=== PATIENT | female | born 1945 | race Caucasian/White ===

== ENCOUNTER 2020-06-30 16:13 | Inpatient (IN) | payer MEDICARE ==
[2020-06-30] MEDS ORDERED: VANCOMYCIN IV PER PHARMACY 1 EACH MISC MISCELLANE PRN (16:21)
[2020-06-30] MEDS ORDERED: HYDROCORTISONE SUCCINATE 100 MG/2 ML VIAL IV STA (16:30)
[2020-06-30] MEDS ORDERED: SODIUM CHLORIDE 0.9% 500 ML 500 ML IV ONE (16:30)
[2020-06-30] MEDS ORDERED: VANCOMYCIN 1,500 MG in SODIUM CHLORIDE 0.9% 250 ML IVPB STA (16:32)
--- NOTE | 2020-06-30 16:42 | ED ---
General Adult HPI - General Chief complaint: Urogenital Stated complaint: UTI,Poss Pneumonia Time Seen by Provider: 06/30/20 16:18 Source: patient, family, EMS, RN notes reviewed, old records reviewed Mode of arrival: EMS Limitations: altered mental status - History of Present Illness Initial comments: 75-year-old female transferred from [facility] for evaluation of UTI, sepsis. Patient initially presented with increased cough, fever, and lethargy. She is bedbound secondary to long-standing MS. Her is her air and water filler and is able to give a complete history. He himself had an upper respiratory infection over the past week. Patient does have suprapubic catheter and was noted to have urinary tract infection. She'll be started on Zosyn and transferred to this institution for UTI with sepsis, there was an infiltrate on x-ray and coronavirus testing was a send out and not available immediately. She is alert feeling much better at the time my evaluation. - Related Data Allergies Allergy/AdvReac Type Severity Reaction Status Date / Time Sulfa (Sulfonamide Allergy Unknown Verified 06/30/20 16:52 Antibiotics) Review of Systems ROS Statement: Those systems with pertinent positive or pertinent negative responses have been documented in the HPI. ROS Other: All systems not noted in ROS Statement are negative. Past Medical History Past Medical History: CVA/TIA, Diabetes Mellitus Additional Past Medical History / Comment(s): MS History of Any Multi-Drug Resistant Organisms: None Reported Past Surgical History: No Surgical Hx Reported Past Psychological History: No Psychological Hx Reported Smoking Status: Never smoker Past Alcohol Use History: None Reported Past Drug Use History: None Reported General Exam Limitations: altered mental status General appearance: alert, in no apparent distress Head exam: Present: atraumatic, normocephalic Eye exam: Present: normal appearance, PERRL ENT exam: Present: mucous membranes moist Neck exam: Present: normal inspection. Absent: tenderness, meningismus Respiratory exam: Present: rhonchi. Absent: respiratory distress Cardiovascular Exam: Present: regular rate, normal rhythm GI/Abdominal exam: Present: soft. Absent: distended, tenderness, guarding, rebound Extremities exam: Absent: pedal edema, joint swelling Neurological exam: Present: alert, oriented X3 Psychiatric exam: Present: normal affect, normal mood Skin exam: Present: warm, dry, intact Course Vital Signs 06/30/20 06/30/20 16:20 16:42 Temperature 98.0 F Pulse Rate 101 H 102 H Respiratory 18 18 Rate Blood Pressure 101/60 105/49 O2 Sat by Pulse 96 98 Oximetry EKG Findings - EKG Comments: EKG Findings:: EKG: Sinus rhythm left axis, left bundle branch block, rate of 99, OH interval 160, QRS duration 156, QTC 546, no ST segment elevation Medical Decision Making - Medical Decision Making 75 female transferred from [facility] with UTI, sepsis, infiltrate and x-ray. There was a high suspicion for coronavirus, this test was performed, and she is positive. She did have signs of UTI and there is concern that this may be a concurrent infection. Laboratory studies have been repeated including blood culture, urine culture, CBC, CMP these results are pending. Blood pressure is stable upon arrival. She is continued on normal saline, continued on IV antibiotics. Case has been discussed with Dr. Lainez who will admit. - Lab Data Result diagrams: 06/30/20 16:51 06/30/20 16:51 Lab Results 06/30/20 06/30/20 06/30/20 Range/Units 16:51 16:51 16:51 WBC 11.9 H (3.8-10.6) k/uL RBC 4.35 (3.80-5.40) m/uL Hgb 13.2 (11.4-16.0) gm/dL Hct 40.3 (34.0-46.0) % MCV 92.7 (80.0-100.0) fL MCH 30.3 (25.0-35.0) pg MCHC 32.7 (31.0-37.0) g/dL RDW 14.0 (11.5-15.5) % Plt Count 182 (150-450) k/uL MPV 8.1 Neutrophils % 81 % Lymphocytes % 12 % Monocytes % 6 % Eosinophils % 0 % Basophils % 0 % Neutrophils # 9.6 H (1.3-7.7) k/uL Lymphocytes # 1.4 (1.0-4.8) k/uL Monocytes # 0.7 (0-1.0) k/uL Eosinophils # 0.0 (0-0.7) k/uL Basophils # 0.0 (0-0.2) k/uL Sodium (137-145) mmol/L Potassium (3.5-5.1) mmol/L Chloride (98-107) mmol/L Carbon Dioxide (22-30) mmol/L Anion Gap mmol/L BUN (7-17) mg/dL Creatinine (0.52-1.04) mg/dL Est GFR (CKD-EPI)AfAm (>60 ml/min/1.73 sqM) Est GFR (CKD-EPI)NonAf (>60 ml/min/1.73 sqM) Glucose (74-99) mg/dL Plasma Lactic Acid [place] (0.7-2.0) mmol/L Calcium (8.4-10.2) mg/dL Total Bilirubin (0.2-1.3) mg/dL AST (14-36) U/L ALT (4-34) U/L Alkaline Phosphatase (38-126) U/L Total Protein (6.3-8.2) g/dL Albumin (3.5-5.0) g/dL Urine Color Yellow Urine Appearance Turbid H (Clear) Urine pH 5.0 (5.0-8.0) Ur Specific [place] 1.028 (1.001-1.035) Urine Protein 1+ H (Negative) Urine Glucose (UA) Negative (Negative) Urine Ketones Trace H (Negative) Urine Blood Small H (Negative) Urine Nitrite Positive H (Negative) Urine Bilirubin Negative (Negative) Urine Urobilinogen <2.0 (<2.0) mg/dL Ur Leukocyte Esterase Large H (Negative) Urine RBC 14 H (0-5) /hpf Urine WBC 111 H (0-5) /hpf Urine WBC Clumps Many H (None) /hpf Ur Squamous Epith Cells 8 H (0-4) /hpf Amorphous Sediment Many H (None) /hpf Urine Bacteria Many H (None) /hpf Hyaline Casts 7 H (0-2) /lpf Urine Mucus Many H (None) /hpf Coronavirus (PCR) Detected A (Not Detectd) 06/30/20 06/30/20 Range/Units 16:51 16:51 WBC (3.8-10.6) k/uL RBC (3.80-5.40) m/uL Hgb (11.4-16.0) gm/dL Hct (34.0-46.0) % MCV (80.0-100.0) fL MCH (25.0-35.0) pg MCHC (31.0-37.0) g/dL RDW (11.5-15.5) % Plt Count (150-450) k/uL MPV Neutrophils % % Lymphocytes % % Monocytes % % Eosinophils % % Basophils % % Neutrophils # (1.3-7.7) k/uL Lymphocytes # (1.0-4.8) k/uL Monocytes # (0-1.0) k/uL Eosinophils # (0-0.7) k/uL Basophils # (0-0.2) k/uL Sodium 137 (137-145) mmol/L Potassium 3.5 (3.5-5.1) mmol/L Chloride 110 H (98-107) mmol/L Carbon Dioxide 23 (22-30) mmol/L Anion Gap 4 mmol/L BUN 26 H (7-17) mg/dL Creatinine 0.56 (0.52-1.04) mg/dL Est GFR (CKD-EPI)AfAm >90 (>60 ml/min/1.73 sqM) Est GFR (CKD-EPI)NonAf >90 (>60 ml/min/1.73 sqM) Glucose 177 H (74-99) mg/dL Plasma Lactic Acid [place] 1.7 (0.7-2.0) mmol/L Calcium 7.8 L (8.4-10.2) mg/dL Total Bilirubin 0.5 (0.2-1.3) mg/dL AST 27 (14-36) U/L ALT 20 (4-34) U/L Alkaline Phosphatase 97 (38-126) U/L Total Protein 4.9 L (6.3-8.2) g/dL Albumin 2.5 L (3.5-5.0) g/dL Urine Color Urine Appearance (Clear) Urine pH (5.0-8.0) Ur Specific [place] (1.001-1.035) Urine Protein (Negative) Urine Glucose (UA) (Negative) Urine Ketones (Negative) Urine Blood (Negative) Urine Nitrite (Negative) Urine Bilirubin (Negative) Urine Urobilinogen (<2.0) mg/dL Ur Leukocyte Esterase (Negative) Urine RBC (0-5) /hpf Urine WBC (0-5) /hpf Urine WBC Clumps (None) /hpf Ur Squamous Epith Cells (0-4) /hpf Amorphous Sediment (None) /hpf Urine Bacteria (None) /hpf Hyaline Casts (0-2) /lpf Urine Mucus (None) /hpf Coronavirus (PCR) (Not Detectd) Disposition Clinical Impression: Urinary tract infection, Sepsis, COVID-19 Disposition: ADMITTED IP TO THIS [facility] Condition: Stable Is patient prescribed a controlled substance at d/c from ED?: No Referrals: Bala Campoverde MD [REFERRING] - 1-2 days Decision to Admit Reason: Admit from EC Decision Date: 06/30/20 Decision Time: 17:38
[2020-06-30] MEDS: SODIUM CHLORIDE 0.9% 1,000 ML IV SCH (16:53)
[2020-06-30 17:13] LABS: Amorphous Sediment,Urine Many /hpf; Appearance,Urine Turbid (Clear); Bacteria,Urine Many /hpf; Bilirubin,Urine Negative (Negative); Blood,Urine Small (Negative); Color,Urine Yellow; Glucose,Urine (UA) Negative (Negative); Hyaline Casts,Urine 7 /lpf (0-2); Ketones,Urine Trace (Negative); Leukocyte Esterase,Urine Large (Negative); Mucus,Urine Many /hpf; Nitrite,Urine Positive (Negative); Protein,Urine 1+ (Negative); RBC,Urine 14 /hpf (0-5); Specific Gravity,Urine 1.028 (1.001-1.035); Squamous Epithelial Cell,Urine 8 /hpf (0-4); Urobilinogen,Urine <2.0 mg/dL (<2.0); WBC,Urine 111 /hpf (0-5)
[2020-06-30 17:22] LABS: ALT 20 U/L (4-34); AST 27 U/L (14-36); African American GFR (CKD) >90 (>60 ml/min/1.73 sqM); Albumin 2.5 g/dL (3.5-5.0); Alkaline Phosphatase 97 U/L (38-126); Anion Gap 4 mmol/L; Blood Urea Nitrogen 26 mg/dL (7-17); Calcium 7.8 mg/dL (8.4-10.2); Carbon Dioxide 23 mmol/L (22-30); Chloride 110 mmol/L (98-107); Glucose 177 mg/dL (74-99); Non-African American GFR(CKD) >90 (>60 ml/min/1.73 sqM); Potassium 3.5 mmol/L (3.5-5.1); Sodium 137 mmol/L (137-145); Total Bilirubin 0.5 mg/dL (0.2-1.3); Total Protein 4.9 g/dL (6.3-8.2)
[2020-06-30] MEDS ORDERED: NALOXONE 0.4 MG/ML 1 ML VIAL IV PRN (17:31)
[2020-06-30 17:32] LABS: Basophils % (A) 0 %; Eosinophils % (A) 0 %; HCT 40.3 % (34.0-46.0); HGB 13.2 gm/dL (11.4-16.0); Lymphocytes # (A) 1.4 k/uL (1.0-4.8); Lymphocytes % (A) 12 %; MCH 30.3 pg (25.0-35.0); MCHC 32.7 g/dL (31.0-37.0); MCV 92.7 fL (80.0-100.0); Mean Platelet Volume 8.1; Monocytes # (A) 0.7 k/uL (0-1.0); Monocytes % (A) 6 %; Neutrophils # (A) 9.6 k/uL (1.3-7.7); Neutrophils % (A) 81 %; Platelet Count 182 k/uL (150-450); RBC 4.35 m/uL (3.80-5.40); WBC 11.9 k/uL (3.8-10.6)
--- NOTE | 2020-06-30 23:29 | P.HPIM ---
History of Present Illness H&P Date: 06/30/20 Chief Complaint: cough 75 year old female bedbound due to MS with contractures patient was transferred to our facility from [facility] due to suspicion of UTI with sepsis for further treatment xrays were done over there showing pulmonary infilterates, COVID testing was a sent out. patient unable to provide any meaningful history due to speech difficulties that are chronic, she only says yes and pardon me. which is her baseline per the who is the human services care specialist to his bedbound . he reports few day history of coughing , fever and progressive worsening in mental status and lethargy , poor PO intake and looking overall sick. he suspected another episode of UTI , denies any hematuria for which he took her to the hospital for evaluation she has chronic suprapubic catheter, which is leaking urine at this time . urinalysis was positive and turbid, pendig cultures patient tested positive to covid , patient admits to few week history of URI symptoms himself , however he is getting better , and he has not tested for COVID . blood work showed elevated WBC, BP initially was low, improved with IVF hydration , lactic acid was within normal limits no other history is obtainable from the patient at this time Review of Systems ROS unobtainable: due to mental status Past Medical History Past Medical History: CVA/TIA, Diabetes Mellitus Additional Past Medical History / Comment(s): MS History of Any Multi-Drug Resistant Organisms: None Reported Past Surgical History: No Surgical Hx Reported Past Psychological History: No Psychological Hx Reported Smoking Status: Never smoker Past Alcohol Use History: None Reported Past Drug Use History: None Reported - Past Family History Mother History Unknown: Yes Father History Unknown: Yes Medications and Allergies Home Medications Medication Instructions Recorded Confirmed Type Baclofen [Lioresal] 20 mg PO Q6H 06/30/20 06/30/20 History Cholecalciferol [Vitamin D3 (25 2,000 unit PO DAILY 06/30/20 06/30/20 History Mcg = 1000 Iu)] Docusate [Colace] 100 mg PO HS 06/30/20 06/30/20 History FLUoxetine HCL 20 mg PO BID 06/30/20 06/30/20 History L.acidoph,Paracasei, B.lactis 1 cap PO DAILY 06/30/20 06/30/20 History [Probiotic] Lisinopril [Zestril] 10 mg PO DAILY 06/30/20 06/30/20 History Metoprolol Succinate [Toprol XL] 25 mg PO HS 06/30/20 06/30/20 History Multivitamins, Thera [Multivitamin 1 tab PO DAILY 06/30/20 06/30/20 History (formulary)] Naproxen [Naprosyn] 500 mg PO DAILY 06/30/20 06/30/20 History Neomycin And Polymyxin B Sulfates 50 ml IRRIGATION DAILY 06/30/20 06/30/20 History [id number] Solution Oxybutynin Chloride [Ditropan XL] 10 mg PO DAILY 06/30/20 06/30/20 History Pravastatin Sodium [Pravachol] 80 mg PO HS 06/30/20 06/30/20 History SILVER sulfADIAZINE Cream 1 applic TOPICAL BID 06/30/20 06/30/20 History [Silvadene 1% Cream] bisacodyL [Dulcolax] 10 mg RECTAL MOWEFR@0700 06/30/20 06/30/20 History polyethylene glycoL 3350 [Miralax] 17 gm PO SUTUTH@1900 06/30/20 06/30/20 History Allergies Allergy/AdvReac Type Severity Reaction Status Date / Time Sulfa (Sulfonamide Allergy Rash/Hives Verified 06/30/20 18:00 Antibiotics) Physical Exam Vitals: Vital Signs Temp Pulse Resp BP Pulse Ox 06/30/20 19:00 97.9 F 87 18 110/52 98 06/30/20 17:50 97.5 F L 92 20 105/47 99 06/30/20 16:42 102 H 18 105/49 98 06/30/20 16:20 98.0 F 101 H 18 101/60 96 Intake and Output 06/30/20 06/30/20 06/30/20 06:59 14:59 22:59 Other: Voiding Method Indwelling Catheter Weight 83.915 kg Constitutional: No acute distress, speech limited by only two words, "yes" and "pardon me" which are randomly used during the interview, patient cooperative with exam Eyes: Anicteric sclerae, moist conjunctiva Pupils equal round reactive to light ENMT: NC/AT Oropharynx clear, no erythema, or exudates Neck: Supple, FROM, no masses, or JVD No carotid bruits No thyromegaly Lungs: good breath sounds bilaterally no wheezing no rales Clear to percussion Normal respiratory effort, no accessory muscle use Cardiovascular: Heart regular in rate and rhythm, No murmurs, gallops, or rubs No peripheral edema Abdominal: Soft, there is leaking of urine from her suprapubic catheter Nontender, no guarding, rebound or rigidity Abdomen moving with respiration Normoactive bowel sounds No hepatomegaly, No splenomegaly No palpable mass Skin: Normal temperature, tone, texture, turgor No induration No subcutaneous nodules No rash, lesions No ulcers Extremities: contractures of all 4 extremities Psychiatric: Alert and orientation could not be assessed due to speech limitations Neuro patient has contractures in all 4 extremities, unable to assess sensation unable to assess cranial nerves, patient could not follow my commands properly , and could not give coherent feedback , due to speech limitations Lymphatics: no palpable cervical or supraclavicular , or inguinal lymph nodes Results CBC & Chem 7: 06/30/20 16:51 06/30/20 16:51 Labs: Abnormal Lab Results - Last 24 Hours (Table) 06/30/20 06/30/20 06/30/20 Range/Units 16:51 16:51 16:51 WBC 11.9 H (3.8-10.6) k/uL Neutrophils # 9.6 H (1.3-7.7) k/uL Chloride (98-107) mmol/L BUN (7-17) mg/dL Glucose (74-99) mg/dL Calcium (8.4-10.2) mg/dL Total Protein (6.3-8.2) g/dL Albumin (3.5-5.0) g/dL Urine Appearance Turbid H (Clear) Urine Protein 1+ H (Negative) Urine Ketones Trace H (Negative) Urine Blood Small H (Negative) Urine Nitrite Positive H (Negative) Ur Leukocyte Esterase Large H (Negative) Urine RBC 14 H (0-5) /hpf Urine WBC 111 H (0-5) /hpf Urine WBC Clumps Many H (None) /hpf Ur Squamous Epith Cells 8 H (0-4) /hpf Amorphous Sediment Many H (None) /hpf Urine Bacteria Many H (None) /hpf Hyaline Casts 7 H (0-2) /lpf Urine Mucus Many H (None) /hpf Coronavirus (PCR) Detected A (Not Detectd) 06/30/20 Range/Units 16:51 WBC (3.8-10.6) k/uL Neutrophils # (1.3-7.7) k/uL Chloride 110 H (98-107) mmol/L BUN 26 H (7-17) mg/dL Glucose 177 H (74-99) mg/dL Calcium 7.8 L (8.4-10.2) mg/dL Total Protein 4.9 L (6.3-8.2) g/dL Albumin 2.5 L (3.5-5.0) g/dL Urine Appearance (Clear) Urine Protein (Negative) Urine Ketones (Negative) Urine Blood (Negative) Urine Nitrite (Negative) Ur Leukocyte Esterase (Negative) Urine RBC (0-5) /hpf Urine WBC (0-5) /hpf Urine WBC Clumps (None) /hpf Ur Squamous Epith Cells (0-4) /hpf Amorphous Sediment (None) /hpf Urine Bacteria (None) /hpf Hyaline Casts (0-2) /lpf Urine Mucus (None) /hpf Coronavirus (PCR) (Not Detectd) Assessment and Plan Assessment: COVID pneumonitis possible complicated UTI with chronic suprapubic catheter monitor oxygen requirement supportive care hypotension , resolved with IVF hydration continue with IVF hydration with normal saline follow up electrolytes follow up cultures empiric antibiotics , zosyn for possible UTI urology consult for suprapubic cath management and care supplemental oxygen if hypoxemia , and consider starting decadron for hypoxemia with covid pulmonary consult for remdesavir chronic conditions MS with contractures, muscle relaxants bedbound DM , insulin sliding scale swallow eval bedside full code heparin sc for DVT ppx PPI for GI ppx anticipated length of stay > 2 days anticipated discharge home with home care 75 min spent in the care of this patient with >50% of the time spent in coordinating care
[2020-07-01] MEDS: FLUoxetine HCL 20 MG CAP PO SCH ×3 (00:21→20:48)
[2020-07-01] MEDS: PRAVASTATIN SODIUM 80 MG TAB PO SCH ×2 (00:21→20:48)
[2020-07-01] MEDS: BACLOFEN 10 MG TAB PO SCH ×5 (00:21→20:48)
[2020-07-01] MEDS: METOPROLOL SUCCINATE (ER) 25 MG TAB.ER.24H PO SCH ×2 (00:21→20:48)
[2020-07-01] MEDS: DOCUSATE 100 MG CAP PO SCH ×2 (00:21→20:48)
[2020-07-01] MEDS: HEPARIN SODIUM,PORCINE 5,000 UNIT/ML 1 ML VIAL SQ SCH ×4 (00:22→23:31)
[2020-07-01] MEDS: PIPERACILLIN-TAZOBACTAM 3.375 GM in SODIUM CHLORIDE 0.9% 100 ML IVPB SCH ×4 (00:22→23:31)
[2020-07-01] MEDS: SODIUM CHLORIDE 0.9% 1,000 ML IV SCH ×3 (00:22→16:24)
[2020-07-01] MEDS: VANCOMYCIN 1,500 MG in SODIUM CHLORIDE 0.9% 250 ML IVPB SCH ×2 (05:38→16:23)
[2020-07-01 06:31] LABS: Basophils % (A) 0 %; Eosinophils % (A) 0 %; HCT 37.1 % (34.0-46.0); HGB 12.3 gm/dL (11.4-16.0); Lymphocytes # (A) 1.8 k/uL (1.0-4.8); Lymphocytes % (A) 14 %; MCH 31.3 pg (25.0-35.0); MCHC 33.2 g/dL (31.0-37.0); MCV 94.1 fL (80.0-100.0); Mean Platelet Volume 8.4; Monocytes # (A) 0.4 k/uL (0-1.0); Monocytes % (A) 3 %; Neutrophils # (A) 10.2 k/uL (1.3-7.7); Neutrophils % (A) 81 %; Platelet Count 188 k/uL (150-450); RBC 3.94 m/uL (3.80-5.40); RDW 13.7 % (11.5-15.5); WBC 12.6 k/uL (3.8-10.6)
[2020-07-01 06:56] LABS: Glucose,Whole Blood 107 mg/dL (75-99)
--- NOTE | 2020-07-01 08:20 | P.GSCN ---
History of Present Illness Consult date: 07/01/20 History of present illness: 75-year-old female transferred from [facility] with what appeared to be urinary tract infection with sepsis. This woman has long- standing multiple sclerosis and is bedridden and somewhat aphasic as a result. Her urologic care is a chronic suprapubic tube. I do not know who manages this and the patient can not give me any history unfortunately. There is nobody else at the bedside to communicate her previous urologic status. Apparently she became lethargic with an elevated fever. There is question whether she has covid vs a urinary tract infection with sepsis. On chest x-ray she apparently has infiltrates. She has also had a cough. Her rapidcovid test was negative. When has been sent out however. The patient apparently is more responsive since she has had an IV and then in the hospital. Review of Systems ROS unobtainable: due to mental status Past Medical History Past Medical History: CVA/TIA, Diabetes Mellitus Additional Past Medical History / Comment(s): MS History of Any Multi-Drug Resistant Organisms: None Reported Past Surgical History: No Surgical Hx Reported Past Anesthesia/Blood Transfusion Reactions: No Reported Reaction Past Psychological History: No Psychological Hx Reported Smoking Status: Never smoker Past Alcohol Use History: None Reported Past Drug Use History: None Reported - Past Family History Mother History Unknown: Yes Father History Unknown: Yes Medications and Allergies Home Medications Medication Instructions Recorded Confirmed Type Baclofen [Lioresal] 20 mg PO Q6H 06/30/20 06/30/20 History Cholecalciferol [Vitamin D3 (25 2,000 unit PO DAILY 06/30/20 06/30/20 History Mcg = 1000 Iu)] Docusate [Colace] 100 mg PO HS 06/30/20 06/30/20 History FLUoxetine HCL 20 mg PO BID 06/30/20 06/30/20 History L.acidoph,Paracasei, B.lactis 1 cap PO DAILY 06/30/20 06/30/20 History [Probiotic] Lisinopril [Zestril] 10 mg PO DAILY 06/30/20 06/30/20 History Metoprolol Succinate [Toprol XL] 25 mg PO HS 06/30/20 06/30/20 History Multivitamins, Thera [Multivitamin 1 tab PO DAILY 06/30/20 06/30/20 History (formulary)] Naproxen [Naprosyn] 500 mg PO DAILY 06/30/20 06/30/20 History Neomycin And Polymyxin B Sulfates 50 ml IRRIGATION DAILY 06/30/20 06/30/20 History [id number] Solution Oxybutynin Chloride [Ditropan XL] 10 mg PO DAILY 06/30/20 06/30/20 History Pravastatin Sodium [Pravachol] 80 mg PO HS 06/30/20 06/30/20 History SILVER sulfADIAZINE Cream 1 applic TOPICAL BID 06/30/20 06/30/20 History [Silvadene 1% Cream] bisacodyL [Dulcolax] 10 mg RECTAL MOWEFR@0700 06/30/20 06/30/20 History polyethylene glycoL 3350 [Miralax] 17 gm PO SUTUTH@1900 06/30/20 06/30/20 History Allergies Allergy/AdvReac Type Severity Reaction Status Date / Time Sulfa (Sulfonamide Allergy Rash/Hives Verified 06/30/20 18:00 Antibiotics) Surgical - Exam Vital Signs Temp Pulse Resp BP Pulse Ox 98.0 F 101 H 18 101/60 96 06/30/20 16:20 06/30/20 16:20 06/30/20 16:20 06/30/20 16:20 06/30/20 16:20 - General The patient can only say hello. She cannot answer any questions. well developed, well nourished - Eyes PERRL - ENT no hearing loss - Neck trachea midline - Respiratory normal expansion, normal respiratory effort - Cardiovascular Rhythm: regular - Abdomen 26-[place] suprapubic tube with cloudy urine Abdomen: soft, non tender - Musculoskeletal Contracted extremities - Psychiatric Unable to respond to questions due to multiple sclerosis Results - Labs 07/01/20 05:48 06/30/20 16:51 Abnormal Lab Results - Last 24 Hours (Table) 06/30/20 06/30/20 06/30/20 Range/Units 16:51 16:51 16:51 WBC 11.9 H (3.8-10.6) k/uL Neutrophils # 9.6 H (1.3-7.7) k/uL Chloride (98-107) mmol/L BUN (7-17) mg/dL Glucose (74-99) mg/dL POC Glucose (mg/dL) (75-99) mg/dL Calcium (8.4-10.2) mg/dL Total Protein (6.3-8.2) g/dL Albumin (3.5-5.0) g/dL Urine Appearance Turbid H (Clear) Urine Protein 1+ H (Negative) Urine Ketones Trace H (Negative) Urine Blood Small H (Negative) Urine Nitrite Positive H (Negative) Ur Leukocyte Esterase Large H (Negative) Urine RBC 14 H (0-5) /hpf Urine WBC 111 H (0-5) /hpf Urine WBC Clumps Many H (None) /hpf Ur Squamous Epith Cells 8 H (0-4) /hpf Amorphous Sediment Many H (None) /hpf Urine Bacteria Many H (None) /hpf Hyaline Casts 7 H (0-2) /lpf Urine Mucus Many H (None) /hpf Coronavirus (PCR) Detected A (Not Detectd) 06/30/20 07/01/20 07/01/20 Range/Units 16:51 05:48 06:53 WBC 12.6 H (3.8-10.6) k/uL Neutrophils # 10.2 H (1.3-7.7) k/uL Chloride 110 H (98-107) mmol/L BUN 26 H (7-17) mg/dL Glucose 177 H (74-99) mg/dL POC Glucose (mg/dL) 107 H (75-99) mg/dL Calcium 7.8 L (8.4-10.2) mg/dL Total Protein 4.9 L (6.3-8.2) g/dL Albumin 2.5 L (3.5-5.0) g/dL Urine Appearance (Clear) Urine Protein (Negative) Urine Ketones (Negative) Urine Blood (Negative) Urine Nitrite (Negative) Ur Leukocyte Esterase (Negative) Urine RBC (0-5) /hpf Urine WBC (0-5) /hpf Urine WBC Clumps (None) /hpf Ur Squamous Epith Cells (0-4) /hpf Amorphous Sediment (None) /hpf Urine Bacteria (None) /hpf Hyaline Casts (0-2) /lpf Urine Mucus (None) /hpf Coronavirus (PCR) (Not Detectd) Microbiology - Last 24 Hours (Table) 06/30/20 16:51 Urine Culture - Preliminary Urine,Voided Diabetes panel 06/30/20 Range/Units 16:51 Sodium 137 (137-145) mmol/L Potassium 3.5 (3.5-5.1) mmol/L Chloride 110 H (98-107) mmol/L Carbon Dioxide 23 (22-30) mmol/L BUN 26 H (7-17) mg/dL Creatinine 0.56 (0.52-1.04) mg/dL Glucose 177 H (74-99) mg/dL Calcium 7.8 L (8.4-10.2) mg/dL AST 27 (14-36) U/L ALT 20 (4-34) U/L Alkaline Phosphatase 97 (38-126) U/L Total Protein 4.9 L (6.3-8.2) g/dL Albumin 2.5 L (3.5-5.0) g/dL Calcium panel 06/30/20 Range/Units 16:51 Calcium 7.8 L (8.4-10.2) mg/dL Albumin 2.5 L (3.5-5.0) g/dL Pituitary panel 06/30/20 Range/Units 16:51 Sodium 137 (137-145) mmol/L Potassium 3.5 (3.5-5.1) mmol/L Chloride 110 H (98-107) mmol/L Carbon Dioxide 23 (22-30) mmol/L BUN 26 H (7-17) mg/dL Creatinine 0.56 (0.52-1.04) mg/dL Glucose 177 H (74-99) mg/dL Calcium 7.8 L (8.4-10.2) mg/dL Adrenal panel 06/30/20 Range/Units 16:51 Sodium 137 (137-145) mmol/L Potassium 3.5 (3.5-5.1) mmol/L Chloride 110 H (98-107) mmol/L Carbon Dioxide 23 (22-30) mmol/L BUN 26 H (7-17) mg/dL Creatinine 0.56 (0.52-1.04) mg/dL Glucose 177 H (74-99) mg/dL Calcium 7.8 L (8.4-10.2) mg/dL Total Bilirubin 0.5 (0.2-1.3) mg/dL AST 27 (14-36) U/L ALT 20 (4-34) U/L Alkaline Phosphatase 97 (38-126) U/L Total Protein 4.9 L (6.3-8.2) g/dL Albumin 2.5 L (3.5-5.0) g/dL Assessment and Plan Assessment: Impression: Probable urinary tract infection with sepsis. Chronic neurogenic bladder secondary to multiple sclerosis with indwelling suprapubic tube, 26- [place]. Possible covid pneumonia. Advanced multiple sclerosis. Diabetes. Recommendations: I will obtain a KUB to see if there are any stones however given the level of white count at 12,000 and a normal creatinine (0.56) and it is unlikely that there is any obstruction.
[2020-07-01] MEDS: bisacodyL 10 MG SUPP RECTAL SCH (08:45)
[2020-07-01] MEDS: lisinopriL 10 MG TAB PO SCH (08:51)
[2020-07-01] MEDS: INSULIN ASPART (NovoLOG) 100 UNIT/ML VIAL SQ SCH ×2 (08:52→13:29)
[2020-07-01] MEDS: OXYBUTYNIN 10 MG TAB.ER.24 PO SCH (08:52)
[2020-07-01 09:28] LABS: African American GFR (CKD) 104.1 (60.0-200.0); Albumin 2.9 g/dL (3.80-4.90); Albumin/Globulin Ratio 1.81 (1.60-3.17); Anion Gap 6.8 mmol/L (4.00-12.00); BUN/Creat Ratio 46.67 Ratio (12.00-20.00); Calcium 7.9 mg/dL (8.7-10.3); Carbon Dioxide 24.2 mmol/L (21.6-31.8); Globulin 1.6 g/dL (1.6-3.3); Non-African American GFR(CKD) 89.8 (60.0-200.0); Potassium 3.5 mmol/L (3.5-5.5); Total Bilirubin 0.3 mg/dL (0.3-1.2); Total Protein 4.5 g/dL (6.2-8.2)
--- NOTE | 2020-07-01 14:10 | XR ---
EXAMINATION TYPE: XR chest 1V portable DATE OF EXAM: 07/01/2020 HISTORY: Shortness of breath. COMPARISON: None. TECHNIQUE: Single view of the chest is submitted. FINDINGS: Demonstrated are scattered senescent parenchymal change. Patchy left lower lobe infiltrate. The heart is stable. Hilar and mediastinal structures are within normal limits. Degenerative changes are seen of the dorsal spine. IMPRESSION: 1. Left lower lobe infiltrate. Correlate for Covid 19 pneumonia
[2020-07-01 14:35] VITALS: BMI 29.0
[2020-07-01] MEDS: dexAMETHasone 2 MG TAB PO SCH (16:16)
--- NOTE | 2020-07-01 16:58 | P.PN ---
Subjective Progress Note Date: 07/01/20 Patient is awake and alert today. She does not have any complaints. Objective - Vital Signs Vital signs: Vital Signs Temp 97.9 F 07/01/20 14:00 Pulse 85 07/01/20 14:00 Resp 18 07/01/20 14:00 BP 132/76 07/01/20 14:00 Pulse Ox 98 07/01/20 14:00 Intake & Output 06/30/20 07/01/20 07/01/20 18:59 06:59 18:59 Intake Total 700 Output Total 600 Balance 100 Weight 83.915 kg 83.915 kg 83.915 kg Intake: Amount of Fluid Infused ( 700 ml) Output: Urine 600 Other: Voiding Method Indwelling Catheter Indwelling Catheter # Voids 1 - Exam General: The patient is awake and alert, in no distress. She is contracted. Eye: there is normal conjunctiva bilaterally. Neck: The neck is supple, there is no JVD. Cardiovascular: Normal S1-S2, no S3-S4, no murmurs. Respiratory: Lungs clear to auscultation bilaterally Gastrointestinal: Abdomen is soft, nontender Musculoskeletal: There is no pedal edema. Skin: Skin is warm and dry - Labs CBC & Chem 7: 07/01/20 05:48 07/01/20 05:48 Labs: Abnormal Lab Results - Last 24 Hours (Table) 06/30/20 06/30/20 06/30/20 Range/Units 16:51 16:51 16:51 WBC 11.9 H (3.8-10.6) k/uL Neutrophils # 9.6 H (1.3-7.7) k/uL Chloride (98-107) mmol/L BUN (7-17) mg/dL BUN/Creatinine Ratio (12.00-20.00) Ratio Glucose (74-99) mg/dL POC Glucose (mg/dL) (75-99) mg/dL Calcium (8.4-10.2) mg/dL Total Protein (6.3-8.2) g/dL Albumin (3.5-5.0) g/dL Urine Appearance Turbid H (Clear) Urine Protein 1+ H (Negative) Urine Ketones Trace H (Negative) Urine Blood Small H (Negative) Urine Nitrite Positive H (Negative) Ur Leukocyte Esterase Large H (Negative) Urine RBC 14 H (0-5) /hpf Urine WBC 111 H (0-5) /hpf Urine WBC Clumps Many H (None) /hpf Ur Squamous Epith Cells 8 H (0-4) /hpf Amorphous Sediment Many H (None) /hpf Urine Bacteria Many H (None) /hpf Hyaline Casts 7 H (0-2) /lpf Urine Mucus Many H (None) /hpf Coronavirus (PCR) Detected A (Not Detectd) 06/30/20 07/01/20 07/01/20 Range/Units 16:51 05:48 05:48 WBC 12.6 H (3.8-10.6) k/uL Neutrophils # 10.2 H (1.3-7.7) k/uL Chloride 110 H 112 H (98-107) mmol/L BUN 26 H 28.0 H (7-17) mg/dL BUN/Creatinine Ratio 46.67 H (12.00-20.00) Ratio Glucose 177 H 125 H (74-99) mg/dL POC Glucose (mg/dL) (75-99) mg/dL Calcium 7.8 L 7.9 L (8.4-10.2) mg/dL Total Protein 4.9 L 4.5 L (6.3-8.2) g/dL Albumin 2.5 L 2.90 L (3.5-5.0) g/dL Urine Appearance (Clear) Urine Protein (Negative) Urine Ketones (Negative) Urine Blood (Negative) Urine Nitrite (Negative) Ur Leukocyte Esterase (Negative) Urine RBC (0-5) /hpf Urine WBC (0-5) /hpf Urine WBC Clumps (None) /hpf Ur Squamous Epith Cells (0-4) /hpf Amorphous Sediment (None) /hpf Urine Bacteria (None) /hpf Hyaline Casts (0-2) /lpf Urine Mucus (None) /hpf Coronavirus (PCR) (Not Detectd) 07/01/20 Range/Units 06:53 WBC (3.8-10.6) k/uL Neutrophils # (1.3-7.7) k/uL Chloride (98-107) mmol/L BUN (7-17) mg/dL BUN/Creatinine Ratio (12.00-20.00) Ratio Glucose (74-99) mg/dL POC Glucose (mg/dL) 107 H (75-99) mg/dL Calcium (8.4-10.2) mg/dL Total Protein (6.3-8.2) g/dL Albumin (3.5-5.0) g/dL Urine Appearance (Clear) Urine Protein (Negative) Urine Ketones (Negative) Urine Blood (Negative) Urine Nitrite (Negative) Ur Leukocyte Esterase (Negative) Urine RBC (0-5) /hpf Urine WBC (0-5) /hpf Urine WBC Clumps (None) /hpf Ur Squamous Epith Cells (0-4) /hpf Amorphous Sediment (None) /hpf Urine Bacteria (None) /hpf Hyaline Casts (0-2) /lpf Urine Mucus (None) /hpf Coronavirus (PCR) (Not Detectd) Microbiology - Last 24 Hours (Table) 06/30/20 16:50 Blood Culture Gram Stain - Preliminary Blood 06/30/20 16:51 Blood Culture - Final Blood 06/30/20 16:51 Urine Culture - Preliminary Urine,Voided Assessment and Plan Assessment: This is a 75-year-old female with complex past medical history significant for underlying MS who is chronically bedbound that presented to the emergency room as a transfer from [place] for further evaluation of underlying UTI. Patient was evaluated in the ER and currently admitted to the hospital for further management of her medical problems noted below. 1. Catheter associated UTI: Currently on broad-spectrum antibiotic awaiting urine culture 2. Gram-positive bacteremia: Continue IV vancomycin awaiting final identification and susceptibility. Repeat blood culture ordered today. 3. Sepsis without septic shock, improved with aggressive IV fluid hydration and antibiotic 4. Neurogenic bladder with chronic suprapubic catheter, seen and evaluated by urology, appreciate recommendations. 5. COVID-19 pneumonia, and started on Decadron day #1. I added zinc, vitamin C, vitamin D, and melatonin to her regimen 6. Toxic/metabolic encephalopathy, improved. Mentation seems to be back to normal baseline.
--- NOTE | 2020-07-01 17:55 | P.CNPUL ---
History of Present Illness Consult date: 07/01/20 Requesting physician: Isatu Lainez Reason for consult: pneumonia Chief complaint: Cough and headaches History of present illness: This is a 75-year-old female with history of MS which was diagnosed over 45 years ago, patient has been bedbound for the last 15 years. Her MS has been progressive and debilitating over the years. Patient was transferred from [facility] and she was seen for urinary tract infection and possible sepsis. Chest x-ray while inpatient showed left lower lobe infiltrate, patient had a covid PCR test, and it was reported as positive. Patient is not a great historian, however I was able to discuss some of this history with the over the phone, and the patient had mostly symptoms of headaches, and symptoms of cough. No shortness of breath, no GI symptoms, patient has chronic loss of sensation of smell and taste according to her and according to the . Apparently had URI symptoms about a few weeks ago, and that may have been covid related, however he was never tested because his symptoms were not very severe. On admission the patient was noted to have relatively normal CBC with slight leukocytosis, normal electrolytes profile, and she clearly had abnormal urinalysis with positive leukocyte esterase, and there was evidence of bacteriuria and pyuria. Patient was placed empirically on vancomycin and Zosyn, and she is now on Decadron at 6 mg by mouth daily. Patient is also on vitamin D, and zinc. As well as vitamin C. She is also on heparin 5000 units subcu every 8 hours Review of Systems Constitutional: Negative. HEENT: Negative. Patient has chronic loss of sensation of taste and smell. Neurologic: Symptoms of MS, and symptoms of headaches Pulmonary: Minimal cough, dry nonproductive. No shortness of breath. GI: Negative Genitourinary: Negative. Musculoskeletal: History of muscle atrophy and weakness/chronic. Psychiatric: Negative. Skin: Negative. Hematologic: Negative. Lymphatics: Negative. Cardiac: Negative. Past Medical History Past Medical History: CVA/TIA, Diabetes Mellitus Additional Past Medical History / Comment(s): MS History of Any Multi-Drug Resistant Organisms: None Reported Past Surgical History: No Surgical Hx Reported Past Anesthesia/Blood Transfusion Reactions: No Reported Reaction Past Psychological History: No Psychological Hx Reported Smoking Status: Never smoker Past Alcohol Use History: None Reported Past Drug Use History: None Reported - Past Family History Mother History Unknown: Yes Father History Unknown: Yes Medications and Allergies Home Medications Medication Instructions Recorded Confirmed Type Baclofen [Lioresal] 20 mg PO Q6H 06/30/20 06/30/20 History Cholecalciferol [Vitamin D3 (25 2,000 unit PO DAILY 06/30/20 06/30/20 History Mcg = 1000 Iu)] Docusate [Colace] 100 mg PO HS 06/30/20 06/30/20 History FLUoxetine HCL 20 mg PO BID 06/30/20 06/30/20 History L.acidoph,Paracasei, B.lactis 1 cap PO DAILY 06/30/20 06/30/20 History [Probiotic] Lisinopril [Zestril] 10 mg PO DAILY 06/30/20 06/30/20 History Metoprolol Succinate [Toprol XL] 25 mg PO HS 06/30/20 06/30/20 History Multivitamins, Thera [Multivitamin 1 tab PO DAILY 06/30/20 06/30/20 History (formulary)] Naproxen [Naprosyn] 500 mg PO DAILY 06/30/20 06/30/20 History Neomycin And Polymyxin B Sulfates 50 ml IRRIGATION DAILY 06/30/20 06/30/20 History [id number] Solution Oxybutynin Chloride [Ditropan XL] 10 mg PO DAILY 06/30/20 06/30/20 History Pravastatin Sodium [Pravachol] 80 mg PO HS 06/30/20 06/30/20 History SILVER sulfADIAZINE Cream 1 applic TOPICAL BID 06/30/20 06/30/20 History [Silvadene 1% Cream] bisacodyL [Dulcolax] 10 mg RECTAL MOWEFR@0700 06/30/20 06/30/20 History polyethylene glycoL 3350 [Miralax] 17 gm PO SUTUTH@1900 06/30/20 06/30/20 History Allergies Allergy/AdvReac Type Severity Reaction Status Date / Time Sulfa (Sulfonamide Allergy Rash/Hives Verified 06/30/20 18:00 Antibiotics) Physical Exam Vitals: Vital Signs Temp Pulse Pulse Resp BP BP Pulse Ox 07/01/20 14:00 97.9 F 85 18 132/76 98 07/01/20 08:00 98.2 F 81 18 103/71 99 07/01/20 05:00 98.3 F 84 19 89/57 97 07/01/20 01:30 97.7 F 95 19 98/60 95 07/01/20 00:58 19 07/01/20 00:23 97 106/67 06/30/20 21:49 98.6 F 90 19 98/64 96 06/30/20 21:41 97.8 F 89 18 100/46 97 06/30/20 21:00 91 18 103/54 97 06/30/20 20:00 92 18 111/52 98 06/30/20 19:00 97.9 F 87 18 110/52 98 06/30/20 17:50 97.5 F L 92 20 105/47 99 Intake and Output 07/01/20 07/01/20 07/01/20 06:59 14:59 22:59 Output Total 600 Balance -600 Output: Urine 600 Other: Voiding Method Indwelling Catheter # Voids 1 # Bowel Movements 1 Weight 83.915 kg Physical Exam: Revealed 75-year-old female very pleasant, in no form of distress. Head: Atraumatic, normocephalic. HEENT:[Neck is supple.] [No neck masses.] [No thyromegaly.] [No JVD.] Chest: [Symmetrical chest expansion, minimal crackles at the bases especially at the left base.] Cardiac Exam: [Normal S1 and S2, no S3 gallop, no murmur.] Abdomen: [Soft, nontender, no megaly, no rebound, no guarding, normal bowel sounds.] Extremities: [No clubbing, no edema, no cyanosis.] Neurological Exam: Patient is noted to have contractures of upper extremities, mostly the left upper extremity more so than the right. There is also evidence of muscle atrophy in lower extremities. Alert and oriented 3 Psychiatric: Normal mood, affect and normal mental status exam. Skin: No rashes. Results - Laboratory Findings CBC and BMP: 07/01/20 05:48 07/01/20 05:48 Abnormal lab findings: Abnormal Labs 06/30/20 06/30/20 06/30/20 16:51 16:51 16:51 WBC 11.9 H Neutrophils # 9.6 H Chloride BUN BUN/Creatinine Ratio Glucose POC Glucose (mg/dL) Calcium Total Protein Albumin Urine Appearance Turbid H Urine Protein 1+ H Urine Ketones Trace H Urine Blood Small H Urine Nitrite Positive H Ur Leukocyte Esterase Large H Urine RBC 14 H Urine WBC 111 H Urine WBC Clumps Many H Ur Squamous Epith Cells 8 H Amorphous Sediment Many H Urine Bacteria Many H Hyaline Casts 7 H Urine Mucus Many H Coronavirus (PCR) Detected A 06/30/20 07/01/20 07/01/20 16:51 05:48 05:48 WBC 12.6 H Neutrophils # 10.2 H Chloride 110 H 112 H BUN 26 H 28.0 H BUN/Creatinine Ratio 46.67 H Glucose 177 H 125 H POC Glucose (mg/dL) Calcium 7.8 L 7.9 L Total Protein 4.9 L 4.5 L Albumin 2.5 L 2.90 L Urine Appearance Urine Protein Urine Ketones Urine Blood Urine Nitrite Ur Leukocyte Esterase Urine RBC Urine WBC Urine WBC Clumps Ur Squamous Epith Cells Amorphous Sediment Urine Bacteria Hyaline Casts Urine Mucus Coronavirus (PCR) 07/01/20 06:53 WBC Neutrophils # Chloride BUN BUN/Creatinine Ratio Glucose POC Glucose (mg/dL) 107 H Calcium Total Protein Albumin Urine Appearance Urine Protein Urine Ketones Urine Blood Urine Nitrite Ur Leukocyte Esterase Urine RBC Urine WBC Urine WBC Clumps Ur Squamous Epith Cells Amorphous Sediment Urine Bacteria Hyaline Casts Urine Mucus Coronavirus (PCR) - Diagnostic Findings Chest x-ray: image reviewed (As noted in HPI.) Assessment and Plan Assessment: Impression: Acute urinary tract infection, catheter-related, Acute bacteremia, most likely source is urine. Acute sepsis without septic shock. History of neurogenic bladder. Covid 19 pneumonia without major pulmonary symptoms History of MS, patient is chronically bedbound, related to MS. Recommendation: Continue present course of antibiotics. And adjust according to the final cultures. Awaiting blood cultures and urine cultures. Continue the Covid 19 cocktail. Continue GI and DVT prophylaxis. Discussed her condition with the over the phone. We'll continue to follow. Time with Patient: Greater than 30
[2020-07-01] MEDS: MELATONIN 5 MG TABLET PO SCH (20:48)
[2020-07-02] MEDS: VANCOMYCIN 1,500 MG in SODIUM CHLORIDE 0.9% 250 ML IVPB SCH ×2 (05:25→17:03)
[2020-07-02] MEDS: BACLOFEN 10 MG TAB PO SCH ×4 (05:25→22:47)
[2020-07-02 07:12] LABS: Glucose,Whole Blood 181 mg/dL (75-99)
[2020-07-02] MEDS: PIPERACILLIN-TAZOBACTAM 3.375 GM in SODIUM CHLORIDE 0.9% 100 ML IVPB SCH ×2 (08:42→15:00)
[2020-07-02] MEDS: OXYBUTYNIN 10 MG TAB.ER.24 PO SCH (08:43)
[2020-07-02] MEDS: ZINC SULFATE 220 MG CAP PO SCH (08:44)
[2020-07-02] MEDS: CHOLECALCIFEROL 1,000 UNIT TAB PO SCH (08:44)
[2020-07-02] MEDS: FLUoxetine HCL 20 MG CAP PO SCH ×2 (08:44→20:07)
[2020-07-02] MEDS: dexAMETHasone 2 MG TAB PO SCH (08:44)
[2020-07-02] MEDS: lisinopriL 10 MG TAB PO SCH (08:45)
[2020-07-02] MEDS: ASCORBIC ACID 500 MG TAB PO SCH (08:45)
[2020-07-02] MEDS: HEPARIN SODIUM,PORCINE 5,000 UNIT/ML 1 ML VIAL SQ SCH (08:45)
[2020-07-02] MEDS: ONDANSETRON 4 MG/2 ML VIAL IVP PRN (10:30)
[2020-07-02 11:55] LABS: Glucose,Whole Blood 148 mg/dL (75-99)
--- NOTE | 2020-07-02 13:14 | P.PN ---
Subjective Progress Note Date: 07/02/20 Principal diagnosis: Acute urinary tract infection, acute bacteremia, COVID 19 pneumonia This is a 75-year-old female with history of MS which was diagnosed over 45 years ago, patient has been bedbound for the last 15 years. Her MS has been progressive and debilitating over the years. Patient was transferred from [facility] and she was seen for urinary tract infection and possible sepsis. Chest x-ray while inpatient showed left lower lobe infiltrate, patient had a covid PCR test, and it was reported as positive. Patient is not a great historian, however I was able to discuss some of this history with the over the phone, and the patient had mostly symptoms of headaches, and symptoms of cough. No shortness of breath, no GI symptoms, patient has chronic loss of sensation of smell and taste according to her and according to the . Apparently had URI symptoms about a few weeks ago, and that may have been covid related, however he was never tested because his symptoms were not very severe. On admission the patient was noted to have relatively normal CBC with slight leukocytosis, normal electrolytes profile, and she clearl y had abnormal urinalysis with positive leukocyte esterase, and there was evidence of bacteriuria and pyuria. Patient was placed empirically on vancomycin and Zosyn, and she is now on Decadron at 6 mg by mouth daily. Patient is also on vitamin D, and zinc. As well as vitamin C. She is also on heparin 5000 units subcu every 8 hours On 07/02/2020 patient seen in follow-up on the surgical floor. She is resting comfortably in bed, she denies any worsening shortness of breath, her breathing seems to be comfortable, she is currently on 2 L of oxygen her pulse ox is 98%, she was not Remdesivir candidate related to mild nature of her pulmonary symptoms, and it any major pulmonary symptoms, she denies any cough, no chest discomfort, she is on minimal amount of supplemental oxygen, she remains on oral Decadron, and supplements in the form of vitamin C, vitamin D, zinc supplement, and she is on Zosyn and vancomycin, for antibiotic coverage for gram-positive cocci in clusters. Final culture is in progress. T-max in the last 24 hours was 99.6F. Objective - Vital Signs Vital signs: Vital Signs Temp 97.8 F 12/15/20 08:00 Pulse 61 07/02/20 08:00 Resp 18 07/02/20 08:00 BP 100/65 07/02/20 08:00 Pulse Ox 98 07/02/20 08:00 Intake & Output 07/01/20 07/02/20 07/02/20 18:59 06:59 18:59 Intake Total 260 Output Total 1500 Balance -1240 Weight 83.915 kg Intake: Intake, IV Titration 260 Amount Piperacillin-Tazobactam 3 100 .375 gm In Sodium Chloride 0.9% 100 ml @ 25 mls/hr IVPB Q8HR [facility] Rx# :[id number] Sodium Chloride 0.9% 1, 160 000 ml @ 130 mls/hr IV . Q7H42M [facility] Rx#:[id number] Output: Urine 1500 Other: Voiding Method Indwelling Catheter Indwelling Catheter Indwelling Catheter # Bowel Movements 1 1 - Exam GENERAL EXAM: Alert, very pleasant, 75-year-old white female, currently on 2 L oxygen with a pulse ox of 90%, resting comfortably in bed, comfortable in no apparent distress. HEAD: Normocephalic/atraumatic. EYES: Normal reaction of pupils, equal size. Conjunctiva pink, sclera white. NOSE: Clear with pink turbinates. THROAT: No erythema or exudates. NECK: No masses, no JVD, no thyroid enlargement, no adenopathy. CHEST: No chest wall deformity. Symmetrical expansion. LUNGS: Equal air entry with mild bibasilar crackles, but no wheezes, no rhonchi CVS: Regular rate and rhythm, normal S1 and S2, no gallops, no murmurs, no rubs ABDOMEN: Soft, nontender. No hepatosplenomegaly, normal bowel sounds, no guarding or rigidity. EXTREMITIES: No clubbing, no edema, no cyanosis, 2+ pulses and upper and lower extremities. MUSCULOSKELETAL: Muscle strength and tone normal. SPINE: No scoliosis or deformity SKIN: No rashes CENTRAL NERVOUS SYSTEM: Alert and oriented -3. No focal deficits, tone is normal in all 4 extremities. PSYCHIATRIC: Alert and oriented -3. Appropriate affect. Intact judgment and insight. - Labs CBC & Chem 7: 07/01/20 05:48 07/01/20 05:48 Labs: Abnormal Lab Results - Last 24 Hours (Table) 07/02/20 07/02/20 Range/Units 07:09 11:53 POC Glucose (mg/dL) 181 H 148 H (75-99) mg/dL Microbiology - Last 24 Hours (Table) 06/30/20 16:50 Blood Culture Gram Stain - Preliminary Blood 06/30/20 16:51 Blood Culture - Final Blood Assessment and Plan Plan: Assessment: #1. Acute pulmonary infection, the patient denies any major pulmonary symptoms, she is on minimal amount of supplemental oxygen, her chest x-ray shows left lower lobe infiltrate, findings not typical of COVID 19 pneumonitis, patient is currently covered with the combination of cefepime, doxycycline and vancomycin #2. Acute urinary tract infection #3. Gram-positive bacteremia, blood culture showed gram-positive cocci in clusters, patient is covered with the vancomycin, in addition patient is also on cefepime and doxycycline, final cultures are pending, follow-up cultures have been negative #4. Long-standing history of multiple sclerosis, diagnosed over 45 years ago #5. Medical debility, patient is essentially bedbound for last 15 years requiring total care, patient lives at home with her who is her primary caregiver #6. Previous history of CVA/TIA #7. Diabetes mellitus #8. Chronic neurogenic bladder secondary to multiple sclerosis, with indwelling suprapubic catheter Plan: We'll continue current antibiotics, continue oral Decadron, and vitamins, we'll switch to heparin to subcu tissues Lovenox, we'll obtain a d-dimer, follow-up chest x-ray in the morning, we will obtain a serum inflammatory markers, still no major pulmonary complaints, no significant fever or chills, follow blood cultures are negative thus far, we'll continue to follow I performed a history & physical examination of the patient and discussed their management with my nurse practitioner, Marcela Chaparro. I reviewed the nurse practitioner's note and agree with the documented findings and plan of care. Lung sounds are positive for diminished breath sounds. The findings and the impression was discussed with the patient. I attest to the documentation by the nurse practitioner. Time with Patient: Less than 30
--- NOTE | 2020-07-02 14:28 | P.PN ---
Subjective Progress Note Date: 07/02/20 Patient is awake and alert today. She does not have any complaints. Objective - Vital Signs Vital signs: Vital Signs Temp 97.8 F 07/02/20 08:00 Pulse 61 07/02/20 08:00 Resp 18 07/02/20 08:00 BP 100/65 07/02/20 08:00 Pulse Ox 98 07/02/20 08:00 Intake & Output 07/01/20 07/02/20 07/02/20 18:59 06:59 18:59 Intake Total 260 Output Total 1500 Balance -1240 Weight 83.915 kg Intake: Intake, IV Titration 260 Amount Piperacillin-Tazobactam 3 100 .375 gm In Sodium Chloride 0.9% 100 ml @ 25 mls/hr IVPB Q8HR [facility] Rx# :[id number] Sodium Chloride 0.9% 1, 160 000 ml @ 130 mls/hr IV . Q7H42M [facility] Rx#:[id number] Output: Urine 1500 Other: Voiding Method Indwelling Catheter Indwelling Catheter Indwelling Catheter # Bowel Movements 1 1 - Exam General: The patient is awake and alert, in no distress. She is contracted. Eye: there is normal conjunctiva bilaterally. Neck: The neck is supple, there is no JVD. Cardiovascular: Normal S1-S2, no S3-S4, no murmurs. Respiratory: Lungs clear to auscultation bilaterally Gastrointestinal: Abdomen is soft, nontender Musculoskeletal: There is no pedal edema. Skin: Skin is warm and dry - Labs CBC & Chem 7: 07/01/20 05:48 07/01/20 05:48 Labs: Abnormal Lab Results - Last 24 Hours (Table) 07/02/20 07/02/20 Range/Units 07:09 11:53 POC Glucose (mg/dL) 181 H 148 H (75-99) mg/dL Microbiology - Last 24 Hours (Table) 06/30/20 16:50 Blood Culture Gram Stain - Preliminary Blood 06/30/20 16:51 Blood Culture - Final Blood Assessment and Plan Assessment: This is a 75-year-old female with complex past medical history significant for underlying MS who is chronically bedbound that presented to the emergency room as a transfer from [place] for further evaluation of underlying UTI. Patient was evaluated in the ER and currently admitted to the hospital for further management of her medical problems noted below. 1. Catheter associated UTI: Currently on broad-spectrum antibiotic with IV vancomycin and Zosyn awaiting urine culture 2. Gram-positive bacteremia: Continue IV vancomycin awaiting final identi fication and susceptibility. Repeat blood culture ordered and pending. Infectious disease consulted for further evaluation 3. Sepsis without septic shock, improved with aggressive IV fluid hydration and antibiotic 4. Neurogenic bladder with chronic suprapubic catheter, seen and evaluated by urology, appreciate recommendations. 5. COVID-19 pneumonia, and started on Decadron day #2. I added zinc, vitamin C, vitamin D, and melatonin to her regimen. Pulmonary following closely 6. Toxic/metabolic encephalopathy, improved. Mentation seems to be back to normal baseline.
[2020-07-02] MEDS: ENOXAPARIN 40 MG/0.4 ML SYRINGE SQ SCH (15:00)
--- NOTE | 2020-07-02 15:37 | P.PN ---
Subjective Progress Note Date: 07/02/20 The patient was seen for urinary tract infection with sepsis. She has a suprapubic tube due to her multiple sclerosis and nonfunctioning bladder. A KUB was obtained and there is no evidence of stone. Objective - Vital Signs Vital signs: Vital Signs Temp 97.8 F 07/02/20 14:00 Pulse 49 L 07/02/20 14:00 Resp 18 07/02/20 14:00 BP 95/60 07/02/20 15:29 Pulse Ox 92 L 07/02/20 14:00 Intake & Output 07/01/20 07/02/20 07/02/20 18:59 06:59 18:59 Intake Total 260 Output Total 1500 Balance -1240 Weight 83.915 kg Intake: Intake, IV Titration 260 Amount Piperacillin-Tazobactam 3 100 .375 gm In Sodium Chloride 0.9% 100 ml @ 25 mls/hr IVPB Q8HR [facility] Rx# :[id number] Sodium Chloride 0.9% 1, 160 000 ml @ 130 mls/hr IV . Q7H42M [facility] Rx#:[id number] Output: Urine 1500 Other: Voiding Method Indwelling Catheter Indwelling Catheter Indwelling Catheter # Bowel Movements 1 1 - Labs CBC & Chem 7: 07/01/20 05:48 07/01/20 05:48 Labs: Abnormal Lab Results - Last 24 Hours (Table) 07/02/20 07/02/20 Range/Units 07:09 11:53 POC Glucose (mg/dL) 181 H 148 H (75-99) mg/dL Microbiology - Last 24 Hours (Table) 06/30/20 16:50 Blood Culture Gram Stain - Preliminary Blood 06/30/20 16:51 Blood Culture - Final Blood
--- NOTE | 2020-07-02 15:40 | XR ---
EXAMINATION TYPE: XR KUB DATE OF EXAM: 07/02/2020 COMPARISON: None HISTORY: Stones TECHNIQUE: AP abdomen FINDINGS: There is a 0.8 cm calcification overlying the left iliac crest. On swallowing from the codi l contour and expected course of the ureter. There is a 0.2 cm calcification inferior pole left kidney. There is a 0.3 similar calcification overl ervin the left sacral ala, a ureteral stone could be considered. No additional suspicious calcifications are evident IMPRESSION: 1. Possible 0.3 cm left mid ureteral stone. 2. Inferior pole 0.2 cm calcification left kidney.
[2020-07-02] MEDS ORDERED: VANCOMYCIN TROUGH DUE 1 EACH MISC MISCELLANE ONE (16:00)
[2020-07-02 16:20] LABS: HCT 36.5 % (34.0-46.0); HGB 12.5 gm/dL (11.4-16.0); MCHC 34.2 g/dL (31.0-37.0); MCV 93.6 fL (80.0-100.0); Mean Platelet Volume 8.1; Platelet Count 178 k/uL (150-450); RDW 13.6 % (11.5-15.5); WBC 3.1 k/uL (3.8-10.6)
[2020-07-02 17:25] LABS: Glucose,Whole Blood 222 mg/dL (75-99)
[2020-07-02] MEDS: PRAVASTATIN SODIUM 80 MG TAB PO SCH (20:07)
[2020-07-02] MEDS: METOPROLOL SUCCINATE (ER) 25 MG TAB.ER.24H PO SCH (20:07)
[2020-07-02] MEDS: MELATONIN 5 MG TABLET PO SCH (20:07)
[2020-07-02] MEDS: DOCUSATE 100 MG CAP PO SCH (20:08)
--- NOTE | 2020-07-02 22:18 | P.CONS ---
History of Present Illness - Reason for Consult Consult date: 07/02/20 bacteremia Requesting physician: Jesus Nascimento - Chief Complaint weakness x few days - History of Present Illness Patient is a 75-year female with a past medical history significant for MS diagnosed over 45 years ago when the patient is bedbound for the last 15 years patient also have a suprapubic catheter for a nonfunctioning bladder and retention in this patient presented to [facility] initially for generalized weakness no energy and not feeling well patient was evaluated that facility she did have a UA concerning for UTI and with concern for left lower lobe infiltrate/pneumonia patient subsequently did have a Covid PCR which came back positive and the patient was transferred to [facility] for further management patient hospital for the last 3 days on presentation to the hospital the patient has been afebrile and no fever has been recorded subsequently patient did have a mild elevated white count with a left shift and no lymphopenia D-dimer is mildly elevated 0.77 creatinine was normal liver enzymes normal patient did have a positive urine hutton PCR came back positive here as well patient did have blood cultures with evidence of gram-positive cocci in clusters patient is currently being treated with vancomycin and Zosyn infectious was consulted for further management of her bacteremia patient did have a chest x-ray with evidence of left lower lobe infiltrate correlate for Covid pneumonia patient during my evaluation was being fed via the nurses aide and specifically denies having any symptoms unless he did mention she did have a congested cough but not bringing the sputum no vomiting or diarrhea has been re ported patient overall is not a good historian. Review of Systems Positive point has been mentioned in HPI complete review could not be obtained because of underlying mental status. Past Medical History Past Medical History: CVA/TIA, Diabetes Mellitus Additional Past Medical History / Comment(s): MS History of Any Multi-Drug Resistant Organisms: None Reported Past Surgical History: No Surgical Hx Reported Past Anesthesia/Blood Transfusion Reactions: No Reported Reaction Past Psychological History: No Psychological Hx Reported Smoking Status: Never smoker Past Alcohol Use History: None Reported Past Drug Use History: None Reported - Past Family History Mother History Unknown: Yes Father History Unknown: Yes Medications and Allergies Home Medications Medication Instructions Recorded Confirmed Type Baclofen [Lioresal] 20 mg PO Q6H 06/30/20 06/30/20 History Cholecalciferol [Vitamin D3 (25 2,000 unit PO DAILY 06/30/20 06/30/20 History Mcg = 1000 Iu)] Docusate [Colace] 100 mg PO HS 06/30/20 06/30/20 History FLUoxetine HCL 20 mg PO BID 06/30/20 06/30/20 History L.acidoph,Paracasei, B.lactis 1 cap PO DAILY 06/30/20 06/30/20 History [Probiotic] Lisinopril [Zestril] 10 mg PO DAILY 06/30/20 06/30/20 History Metoprolol Succinate [Toprol XL] 25 mg PO HS 06/30/20 06/30/20 History Multivitamins, Thera [Multivitamin 1 tab PO DAILY 06/30/20 06/30/20 History (formulary)] Naproxen [Naprosyn] 500 mg PO DAILY 06/30/20 06/30/20 History Neomycin And Polymyxin B Sulfates 50 ml IRRIGATION DAILY 06/30/20 06/30/20 History [id number] Solution Oxybutynin Chloride [Ditropan XL] 10 mg PO DAILY 06/30/20 06/30/20 History Pravastatin Sodium [Pravachol] 80 mg PO HS 06/30/20 06/30/20 History SILVER sulfADIAZINE Cream 1 applic TOPICAL BID 06/30/20 06/30/20 History [Silvadene 1% Cream] bisacodyL [Dulcolax] 10 mg RECTAL MOWEFR@0700 06/30/20 06/30/20 History polyethylene glycoL 3350 [Miralax] 17 gm PO SUTUTH@1900 06/30/20 06/30/20 History Allergies Allergy/AdvReac Type Severity Reaction Status Date / Time Sulfa (Sulfonamide Allergy Rash/Hives Verified 06/30/20 18:00 Antibiotics) Physical Exam Vitals: Vital Signs Temp Pulse Resp BP Pulse Ox 07/02/20 18:16 97.8 F 68 18 108/56 99 07/02/20 15:29 95/60 07/02/20 14:00 97.8 F 49 L 18 92 L 07/02/20 08:00 97.8 F 61 18 100/65 98 07/02/20 05:30 98.3 F 70 18 108/65 98 07/02/20 02:00 99.6 F 99 18 110/63 97 Intake and Output 12/15/20 12/15/20 12/15/20 06:59 14:59 22:59 Intake Total 260 Output Total 1500 200 Balance -1240 -200 Intake: Intake, IV Titration 260 Amount Piperacillin-Tazobactam 3 100 .375 gm In Sodium Chloride 0.9% 100 ml @ 25 mls/hr IVPB Q8HR [facility] Rx# :[id number] Sodium Chloride 0.9% 1, 160 000 ml @ 130 mls/hr IV . Q7H42M [facility] Rx#:[id number] Output: Urine 1500 200 Other: Voiding Method Indwelling Catheter Indwelling Catheter # Voids 4 # Bowel Movements 1 GENERAL DESCRIPTION: Elderly female lying in bed, no distress. No tachypnea or accessory muscle of respiration use. HEENT: Shows Pallor , no scleral icterus. Oral mucous membrane is dry. NECK: Trachea central, no thyromegaly. LUNGS: Unlabored breathing. Decreased breath sound at the base. No wheeze or crackle. HEART: S1, S2, regular rate and rhythm. ABDOMEN: Soft, no tenderness , guarding or rigidity EXTREMITIES: No edema of feet. SKIN: No rash, no masses palpable. NEUROLOGICAL: The patient is awake, alert, oriented x2, mood and affect normal. Results CBC & Chem 7: 07/02/20 15:58 07/01/20 05:48 Labs: Abnormal Lab Results - Last 24 Hours (Table) 07/02/20 07/02/20 07/02/20 Range/Units 07:09 11:53 15:58 WBC 3.1 L (3.8-10.6) k/uL D-Dimer (<0.60) mg/L FEU POC Glucose (mg/dL) 181 H 148 H (75-99) mg/dL 07/02/20 07/02/20 Range/Units 15:58 17:16 WBC (3.8-10.6) k/uL D-Dimer 0.77 H (<0.60) mg/L FEU POC Glucose (mg/dL) 222 H (75-99) mg/dL Microbiology - Last 24 Hours (Table) 07/01/20 17:43 Blood Culture - Preliminary Blood No Growth after 24 hours 06/30/20 16:51 Urine Culture - Final Urine,Voided 12/13/20 16:50 Blood Culture Gram Stain - Preliminary Blood Assessment and Plan Assessment: 1-patient presented to hospital with sepsis associated have a fever elevated white count source likely catheter associated tract infection and concern for left lower lobe pneumonia now with evidence of gram-positive bacteremia possible Staph aureus with no evidence of any gram-negative 2-positive Covid test patient has been treated conservatively without remdesivir for mild symptoms (1) Bacteremia Current Visit: Yes Status: Acute Code(s): R78.81 - BACTEREMIA SNOMED Code(s): 0443905 (2) COVID-19 Current Visit: Yes Status: Acute Code(s): U07.1 - COVID-19 SNOMED Code(s): 031725168 (3) Sepsis Current Visit: Yes Status: Acute Code(s): A41.9 - SEPSIS, UNSPECIFIED OR GANISM SNOMED Code(s): 10635368 (4) Urinary tract infection Current Visit: Yes Status: Acute Code(s): N39.0 - URINARY TRACT INFECTION, SITE NOT SPECIFIED SNOMED Code(s): 42209923 Plan: 1-blood culture repeated document clearance of bacteremia 2-vancomycin pharmacy to dose her with a target trough of 15 while watching her kidney function and Vanco trough closely. 3-discontinue Zosyn as no gram-negative seen 4-patient to continue with vitamin C dexamethasone Lovenox and zinc for underlying COVID-19 infection Droplet isolation and respiratory support We will follow on clinical condition and cultures to further adjust medication if needed Thank you for this consultation we will follow the patient along with you Time with Patient: Greater than 30
[2020-07-03 03:44] LABS: African American GFR (CKD) 104.1 (60.0-200.0); Anion Gap 8.3 mmol/L (4.00-12.00); C Reactive Protein 12.7 mg/dL (0.0-0.8); Calcium 8.5 mg/dL (8.7-10.3); Carbon Dioxide 22.7 mmol/L (21.6-31.8); Non-African American GFR(CKD) 89.8 (60.0-200.0); Potassium 3.9 mmol/L (3.5-5.5)
[2020-07-03] MEDS: BACLOFEN 10 MG TAB PO SCH ×4 (04:45→21:25)
[2020-07-03] MEDS ORDERED: VANCOMYCIN 1,250 MG in SODIUM CHLORIDE 0.9% 250 ML IVPB SCH (05:00)
[2020-07-03 07:01] LABS: Basophils % (A) 0 %; Eosinophils % (A) 0 %; HCT 38.4 % (34.0-46.0); HGB 12.6 gm/dL (11.4-16.0); Lymphocytes # (A) 0.9 k/uL (1.0-4.8); Lymphocytes % (A) 18 %; MCH 30.9 pg (25.0-35.0); MCHC 32.8 g/dL (31.0-37.0); MCV 94.2 fL (80.0-100.0); Mean Platelet Volume 8.3; Monocytes # (A) 0.5 k/uL (0-1.0); Monocytes % (A) 10 %; Neutrophils # (A) 3.4 k/uL (1.3-7.7); Neutrophils % (A) 69 %; Platelet Count 185 k/uL (150-450); RBC 4.08 m/uL (3.80-5.40); RDW 13.8 % (11.5-15.5)
--- NOTE | 2020-07-03 07:06 | XR ---
EXAMINATION TYPE: XR chest 1V portable DATE OF EXAM: 07/03/2020 HISTORY: Shortness of breath. COMPARISON: 07/01/2020 TECHNIQUE: Single view of the chest is submitted. FINDINGS: Demonstrated are scattered senescent parenchymal change. Patchy perihilar and basilar infiltrates persist without significant interval change. The heart is stable. Hilar and mediastinal structures are within normal limits. Degenerative changes are seen of the dorsal spine. IMPRESSION: 1. Patchy perihilar and basilar infiltrates persist without significant interval change.
[2020-07-03] MEDS: bisacodyL 10 MG SUPP RECTAL SCH (08:07)
[2020-07-03] MEDS: ASCORBIC ACID 500 MG TAB PO SCH (08:14)
[2020-07-03] MEDS: lisinopriL 10 MG TAB PO SCH (08:14)
[2020-07-03] MEDS: CHOLECALCIFEROL 1,000 UNIT TAB PO SCH (08:14)
[2020-07-03] MEDS: ZINC SULFATE 220 MG CAP PO SCH (08:14)
[2020-07-03] MEDS: FLUoxetine HCL 20 MG CAP PO SCH ×2 (08:14→21:24)
[2020-07-03] MEDS: dexAMETHasone 2 MG TAB PO SCH (08:14)
[2020-07-03] MEDS: ENOXAPARIN 40 MG/0.4 ML SYRINGE SQ SCH (08:15)
[2020-07-03] MEDS: OXYBUTYNIN 10 MG TAB.ER.24 PO SCH (08:15)
[2020-07-03 09:54] LABS: African American GFR (CKD) 84.2 (60.0-200.0); Anion Gap 6.9 mmol/L (4.00-12.00); Calcium 8.5 mg/dL (8.7-10.3); Carbon Dioxide 24.1 mmol/L (21.6-31.8); Non-African American GFR(CKD) 72.6 (60.0-200.0)
--- NOTE | 2020-07-03 12:13 | P.PN ---
Subjective Progress Note Date: 07/03/20 Principal diagnosis: COVID and bacteremia Patient seen and examined at bedside. Patient does not respond appropriately to questions or commands. Patient does acknowledge her name. Patient continues to say not good. 75 year old female bedbound due to MS with contractures Patient was transferred to our facility from [facility] due to suspicion of UTI with sepsis for further treatment xrays were done over there showing pulmonary infilterates, COVID testing was a sent out. patient unable to provide any meaningful history due to speech difficulties, which is her baseline. Per the who is the rn urgent care to his bedbound . he reports few day history of coughing , fever and progressive worsening in mental status and lethargy , poor PO intake and looking overall sick. he suspected another episode of UTI , denies any hematuria for which he took her to the hospital for evaluation she has chronic suprapubic catheter, which is leaking urine at this time . urinalysis was positive and turbid, pendig cultures Patient tested positive to covid , patient admits to few week history of URI symptoms himself , however he is getting better , and he has not tested for COVID . Blood work showed elevated WBC, BP initially was low, improved with IVF hydration , lactic acid was within normal limits No other history is obtainable from the patient at this time Objective - Vital Signs Vital signs: Vital Signs Temp 98.1 F 07/03/20 09:15 Pulse 64 07/03/20 09:15 Resp 17 07/03/20 09:15 BP 94/58 07/03/20 09:15 Pulse Ox 97 07/03/20 09:15 Intake & Output 07/02/20 07/03/20 07/03/20 18:59 06:59 18:59 Output Total 200 400 Balance -200 -400 Output: Urine 200 400 Other: Voiding Method Indwelling Catheter Indwelling Catheter Indwelling Catheter # Voids 4 - Exam General: [non toxic], [no distress], [appears at stated age] Derm: [warm], [dry] Head: [atraumatic], [normocephalic], [symmetric] Eyes: [EOMI], [no lid lag], [anicteric sclera] Mouth: [no lip lesion], [mucus membranes moist] Cardiovascular: [S1S2 reg], [no murmur], [positive posterior tibial pulse bilateral], Lungs: [Rhonchi bilateral], [no rales] , [no accessory muscle use] Abdominal: [soft], [ nontender to palpation], [no guarding], [no appreciable organomegaly] Ext: [no gross muscle atrophy], [no edema], [no contractures] Neuro: [ CN II-XI grossly intact], [no focal neuro deficits] Psych: Alert and does not respond appropriately to questions - Constitutional Constitutional Comment(s): A 14 point review of systems was unable to be assessed secondary to patient's mental status. - Labs CBC & Chem 7: 07/03/20 05:34 07/03/20 05:34 Labs: Abnormal Lab Results - Last 24 Hours (Table) 07/02/20 07/02/20 07/02/20 Range/Units 11:53 15:58 15:58 WBC 3.1 L (3.8-10.6) k/uL Lymphocytes # (1.0-4.8) k/uL D-Dimer (<0.60) mg/L FEU Chloride 112 H (96-109) mmol/L BUN (9.0-27.0) mg/dL BUN/Creatinine Ratio 45.00 H (12.00-20.00) Ratio Glucose 243 H (70-110) mg/dL POC Glucose (mg/dL) 148 H (75-99) mg/dL Calcium 8.5 L (8.7-10.3) mg/dL C-Reactive Protein 12.7 H (0.0-0.8) mg/dL 07/02/20 07/02/20 07/03/20 Range/Units 15:58 17:16 05:34 WBC (3.8-10.6) k/uL Lymphocytes # (1.0-4.8) k/uL D-Dimer 0.77 H (<0.60) mg/L FEU Chloride 113 H (96-109) mmol/L BUN 32.0 H (9.0-27.0) mg/dL BUN/Creatinine Ratio 40.00 H (12.00-20.00) Ratio Glucose 151 H (70-110) mg/dL POC Glucose (mg/dL) 222 H (75-99) mg/dL Calcium 8.5 L (8.7-10.3) mg/dL C-Reactive Protein (0.0-0.8) mg/dL 07/03/20 Range/Units 05:34 WBC (3.8-10.6) k/uL Lymphocytes # 0.9 L (1.0-4.8) k/uL D-Dimer (<0.60) mg/L FEU Chloride (96-109) mmol/L BUN (9.0-27.0) mg/dL BUN/Creatinine Ratio (12.00-20.00) Ratio Glucose (70-110) mg/dL POC Glucose (mg/dL) (75-99) mg/dL Calcium (8.7-10.3) mg/dL C-Reactive Protein (0.0-0.8) mg/dL Microbiology - Last 24 Hours (Table) 06/30/20 16:51 Urine Culture - Final Urine,Voided 06/30/20 16:50 Blood Culture Gram Stain - Final Blood Blood Culture - Final Coagulase Negative Staph Coagulase Negative Staph#2 07/01/20 17:43 Blood Culture - Preliminary Blood No Growth after 24 hours Assessment and Plan Assessment: -COVID pneumonitis -Bacteremia Coag neg Staph monitor oxygen requirement supportive care continue with IVF hydration with normal saline ID recommendations appreciated Currently on Vancomycin urology consult for suprapubic cath management and care supplemental oxygen if hypoxemia , and consider starting decadron for hypoxemia with covid pulmonary recommendations appreciated -chronic conditions: -MS with contractures, muscle relaxants -bedbound -DM , insulin sliding scale -swallow eval bedside -full code -heparin sc for DVT ppx -PPI for GI ppx -anticipated length of stay > 2 days -anticipated discharge home with home care Time with Patient: Greater than 30
--- NOTE | 2020-07-03 14:31 | P.PN ---
Subjective Progress Note Date: 07/03/20 Principal diagnosis: Acute CoVID 19 pneumonia, urinary tract infection, bacteremia This is a 75-year-old female with history of MS which was diagnosed over 45 years ago, patient has been bedbound for the last 15 years. Her MS has been progressive and debilitating over the years. Patient was transferred from [facility] and she was seen for urinary tract infection and possible sepsis. Chest x-ray while inpatient showed left lower lobe infiltrate, patient had a covid PCR test, and it was reported as positive. Patient is not a great historian, however I was able to discuss some of this history with the over the phone, and the patient had mostly symptoms of headaches, and symptoms of cough. No shortness of breath, no GI symptoms, patient has chronic loss of sensation of smell and taste according to her and according to the . Apparently had URI symptoms about a few weeks ago, and that may have been covid related, however he was never tested because his symptoms were not very severe. On admission the patient was noted to have relatively normal CBC with slight leukocytosis, normal electrolytes profile, and she clearly had abnormal urinalysis with positive leukocyte esterase, and there was evidence of bacteriuria and pyuria. Patient was placed empirically on vancomycin and Zosyn, and she is now on Decadron at 6 mg by mouth daily. Patient is also on vitamin D, and zinc. As well as vitamin C. She is also on heparin 5000 units subcu every 8 hours On 07/02/2020 patient seen in follow-up on the surgical floor. She is resting comfortably in bed, she denies any worsening shortness of breath, her breathing seems to be comfortable, she is currently on 2 L of oxygen her pulse ox is 98%, she was not Remdesivir candidate related to mild nature of her pulmonary symptoms, and it any major pulmonary symptoms, she denies any cough, no chest discomfort, she is on minimal amount of supplemental oxygen, she remains on oral Decadron, and supplements in the form of vitamin C, vitamin D, zinc supplement, and she is on Zosyn and vancomycin, for antibiotic coverage for gram-positive cocci in clusters. Final culture is in progress. T-max in the last 24 hours was 99.6F. The patient is seen today 07/03/2020 in follow-up on the regular medical floor. She is resting comfortably in bed. Awake and alert in no acute distress. Maintaining O2 saturations in the upper 90s on 2 L/m per nasal cannula. She's been afebrile. Initial blood cultures positive for coag-negative staph. Follow-up blood cultures revealing no growth. Urine culture revealing no growth. White count 5.0. Hemoglobin 12.6. Lymphocytes 0.9. Sodium 144. Potassium 4.0. Creatinine 0.8. She is continued on Lovenox, dexamethasone, vitamin supplements. Antibiotics discontinued. Objective - Vital Signs Vital signs: Vital Signs Temp 98.1 F 07/03/20 09:15 Pulse 64 07/03/20 09:15 Resp 17 07/03/20 09:15 BP 94/58 07/03/20 09:15 Pulse Ox 97 07/03/20 09:15 Intake & Output 07/02/20 07/03/20 07/03/20 18:59 06:59 18:59 Output Total 200 400 Balance -200 -400 Output: Urine 200 400 Other: Voiding Method Indwelling Catheter Indwelling Catheter Indwelling Catheter # Voids 4 - Exam GENERAL EXAM: Alert, very pleasant, 75-year-old female patient, currently on 2 L oxygen with a pulse ox of 97%, resting comfortably in bed, no apparent distress. HEAD: Normocephalic/atraumatic. EYES: Normal reaction of pupils, equal size. Conjunctiva pink, sclera white. NOSE: Clear with pink turbinates. THROAT: No erythema or exudates. NECK: No masses, no JVD, no thyroid enlargement, no adenopathy. CHEST: No chest wall deformity. Symmetrical expansion. LUNGS: Equal air entry with mild bibasilar crackles, but no wheezes, no rhonchi CVS: Regular rate and rhythm, normal S1 and S2, no gallops, no murmurs, no rubs ABDOMEN: Soft, nontender. No hepatosplenomegaly, normal bowel sounds, no guarding or rigidity. EXTREMITIES: No clubbing, no edema, no cyanosis, 2+ pulses and upper and lower extremities. MUSCULOSKELETAL: Muscle strength and tone normal. SPINE: No scoliosis or deformity SKIN: No rashes CENTRAL NERVOUS SYSTEM: No focal deficits, tone is normal in all 4 extremities. PSYCHIATRIC: Alert and oriented -3. Appropriate affect. Intact judgment and insight. - Labs CBC & Chem 7: 07/03/20 05:34 07/03/20 05:34 Labs: Abnormal Lab Results - Last 24 Hours (Table) 07/02/20 07/02/20 07/02/20 Range/Units 15:58 15:58 15:58 WBC 3.1 L (3.8-10.6) k/uL Lymphocytes # (1.0-4.8) k/uL D-Dimer 0.77 H (<0.60) mg/L FEU Chloride 112 H (96-109) mmol/L BUN (9.0-27.0) mg/dL BUN/Creatinine Ratio 45.00 H (12.00-20.00) Ratio Glucose 243 H (70-110) mg/dL POC Glucose (mg/dL) (75-99) mg/dL Calcium 8.5 L (8.7-10.3) mg/dL C-Reactive Protein 12.7 H (0.0-0.8) mg/dL 07/02/20 07/03/20 07/03/20 Range/Units 17:16 05:34 05:34 WBC (3.8-10.6) k/uL Lymphocytes # 0.9 L (1.0-4.8) k/uL D-Dimer (<0.60) mg/L FEU Chloride 113 H (96-109) mmol/L BUN 32.0 H (9.0-27.0) mg/dL BUN/Creatinine Ratio 40.00 H (12.00-20.00) Ratio Glucose 151 H (70-110) mg/dL POC Glucose (mg/dL) 222 H (75-99) mg/dL Calcium 8.5 L (8.7-10.3) mg/dL C-Reactive Protein (0.0-0.8) mg/dL Microbiology - Last 24 Hours (Table) 06/30/20 16:51 Urine Culture - Final Urine,Voided 06/30/20 16:50 Blood Culture Gram Stain - Final Blood Blood Culture - Final Coagulase Negative Staph Coagulase Negative Staph#2 07/01/20 17:43 Blood Culture - Preliminary Blood No Growth after 24 hours Assessment and Plan Assessment: 1 Acute pulmonary infection, the patient denies any major pulmonary symptoms, she is on minimal amount of supplemental oxygen, her chest x-ray shows left lower lobe infiltrate, findings not typical of COVID 19 pneumonitis, antibiotics discontinued 2 Suspect urinary tract infection cultures reveal no growth 3 Gram-positive bacteremia, blood culture showed gram-positive cocci in clusters, patient is covered with the vancomycin, in addition patient is also on cefepime and doxycycline, final cultures are pending, follow-up cultures have been negative 4 Long-standing history of multiple sclerosis, diagnosed over 45 years ago 5 Medical debility, patient is essentially bedbound for last 15 years requiring total care, patient lives at home with her who is her primary caregiver 6 Previous history of CVA/TIA 7 Diabetes mellitus 8 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 Frank Titrate down the FiO2 as tolerated Continue Lovenox and dexamethasone Continue vitamin supplement Titrate down the FiO2 as tolerated I, the cosigning physician, performed a history & physical examination of the patient. Lungs sounds with basilar crackles Maintaining good O2 saturations in the 90s on 2 L/m per nasal cannula. I discussed the assessment and plan of care with my nurse practitioner, Eunice Bobby. I attest to the above note as dictated by her.
[2020-07-03] MEDS: PRAVASTATIN SODIUM 80 MG TAB PO SCH (21:24)
[2020-07-03] MEDS: METOPROLOL SUCCINATE (ER) 25 MG TAB.ER.24H PO SCH (21:24)
[2020-07-03] MEDS: MELATONIN 5 MG TABLET PO SCH (21:24)
[2020-07-03] MEDS: DOCUSATE 100 MG CAP PO SCH (21:25)
--- NOTE | 2020-07-04 00:39 | PN ---
PROGRESS NOTE DATE OF SERVICE: 07/03/2020 REASON FOR FOLLOWUP: 1. COVID-19 pneumonia. 2. Bacteremia. INTERVAL HISTORY: The patient is currently afebrile. The patient is breathing comfortably. Still requiring 2 L nasal cannula oxygen. Patient denies having any chest pain or shortness of breath or cough. No abdominal pain or diarrhea. PHYSICAL EXAMINATION: Blood pressure 122/72 with a pulse of 59, temperature 98. She is 94% on 2 L nasal cannula. General description is an elderly female lying in bed in no distress. RESPIRATORY SYSTEM: Unlabored breathing, clear to auscultation anteriorly. HEART: S1, S2. Regular rate and rhythm. ABDOMEN: Soft, no tenderness. LABS: Hemoglobin 12.6, white count 5.0. BUN of 32, creatinine 0.8. Urine came back negative. Blood culture is coagulase negative Staph. DIAGNOSTIC IMPRESSION AND PLAN: 1. Patient with a positive blood culture with coagulase negative staph likely skin contaminant. Vancomycin will be discontinued. 2. Patient admitted to the hospital with shortness of breath, more likely COVID-19 pneumonia in this patient currently being treated with dexamethasone, Lovenox and zinc sulfate to continue along with supportive care. MMODL / IJN: [id number] /
[2020-07-04] MEDS: BACLOFEN 10 MG TAB PO SCH ×4 (05:55→20:48)
[2020-07-04] MEDS: dexAMETHasone 2 MG TAB PO SCH (07:55)
[2020-07-04] MEDS: ASCORBIC ACID 500 MG TAB PO SCH (07:55)
[2020-07-04] MEDS: FLUoxetine HCL 20 MG CAP PO SCH ×2 (07:55→20:49)
[2020-07-04] MEDS: CHOLECALCIFEROL 1,000 UNIT TAB PO SCH (07:55)
[2020-07-04] MEDS: ZINC SULFATE 220 MG CAP PO SCH (07:55)
[2020-07-04] MEDS: OXYBUTYNIN 10 MG TAB.ER.24 PO SCH (07:56)
[2020-07-04] MEDS: ENOXAPARIN 40 MG/0.4 ML SYRINGE SQ SCH (07:56)
[2020-07-04] MEDS: lisinopriL 10 MG TAB PO SCH (08:10)
[2020-07-04 11:45] LABS: African American GFR (CKD) 98.9 (60.0-200.0); Non-African American GFR(CKD) 85.4 (60.0-200.0)
--- NOTE | 2020-07-04 14:45 | P.PN ---
Subjective Progress Note Date: 07/04/20 Principal diagnosis: Change in mental status Patient is not able to provide me with any history. She has MS at baseline and she is bedbound. No fevers or chills. No overnight events. Still having a cough. Objective - Vital Signs Vital signs: Vital Signs Temp 99.2 F 07/04/20 09:06 Pulse 66 07/04/20 09:06 Resp 17 07/04/20 09:06 BP 90/51 07/04/20 09:06 Pulse Ox 92 L 07/04/20 09:06 Intake & Output 07/03/20 07/04/20 07/04/20 18:59 06:59 18:59 Intake Total 200 Output Total 600 800 Balance -600 -600 Intake: Oral 200 Output: Urine 600 800 Other: Voiding Method Indwelling Catheter Indwelling Catheter Indwelling Catheter # Bowel Movements 1 - Exam General: [non toxic], [no distress], [appears at stated age] Derm: [warm], [dry] Head: [atraumatic], [normocephalic], [symmetric] Eyes: [EOMI], [no lid lag], [anicteric sclera] Mouth: [no lip lesion], [mucus membranes moist] Cardiovascular: [S1S2 reg], [no murmur], [positive posterior tibial pulse bilateral], Lungs: [Rhonchi bilateral], [no rales] , [no accessory muscle use] Abdominal: [soft], [ nontender to palpation], [no guarding], [no appreciable organomegaly] Ext: [no gross muscle atrophy], [no edema], [no contractures] Neuro: [ CN II-XI grossly intact], [no focal neuro deficits] Psych: Alert and does not respond appropriately to questions - Labs CBC & Chem 7: 07/03/20 05:34 07/04/20 05:49 Labs: Microbiology - Last 24 Hours (Table) 06/30/20 16:50 Blood Culture Gram Stain - Final Blood Blood Culture - Final Coagulase Negative Staph Coagulase Negative Staph#2 07/01/20 17:43 Blood Culture - Preliminary Blood No Growth after 48 hours Assessment and Plan Plan: -COVID pneumonitis monitor oxygen requirement , currently stable on 2L On decadron Lovenox s.q, melatonin and vitamins. Follow up blood cx negative, vanco d/korey per ID Continue with IVF hydration with normal saline Followed by pulm and ID -chronic conditions: -MS with contractures, muscle relaxants -bedbound -DM , insulin sliding scale -swallow eval bedside -full code -Lovenox sc for DVT ppx -PPI for GI ppx -anticipated discharge 1-2 days -anticipated discharge home with home care
--- NOTE | 2020-07-04 15:44 | P.PN ---
Subjective Progress Note Date: 07/04/20 Principal diagnosis: Acute urinary tract infection, acute bacteremia, COVID 19 pneumonia This is a 75-year-old female with history of MS which was diagnosed over 45 years ago, patient has been bedbound for the last 15 years. Her MS has been progressive and debilitating over the years. Patient was transferred from [facility] and she was seen for urinary tract infection and possible sepsis. Chest x-ray while inpatient showed left lower lobe infiltrate, patient had a covid PCR test, and it was reported as positive. Patient is not a great historian, however I was able to discuss some of this history with the over the phone, and the patient had mostly symptoms of headaches, and symptoms of cough. No shortness of breath, no GI symptoms, patient has chronic loss of sensation of smell and taste according to her and according to the . Apparently had URI symptoms about a few weeks ago, and that may have been covid related, however he was never tested because his symptoms were not very severe. On admission the patient was noted to have relatively normal CBC with slight leukocytosis, normal electrolytes profile, and she clearl y had abnormal urinalysis with positive leukocyte esterase, and there was evidence of bacteriuria and pyuria. Patient was placed empirically on vancomycin and Zosyn, and she is now on Decadron at 6 mg by mouth daily. Patient is also on vitamin D, and zinc. As well as vitamin C. She is also on heparin 5000 units subcu every 8 hours On 07/02/2020 patient seen in follow-up on the surgical floor. She is resting comfortably in bed, she denies any worsening shortness of breath, her breathing seems to be comfortable, she is currently on 2 L of oxygen her pulse ox is 98%, she was not Remdesivir candidate related to mild nature of her pulmonary symptoms, and it any major pulmonary symptoms, she denies any cough, no chest discomfort, she is on minimal amount of supplemental oxygen, she remains on oral Decadron, and supplements in the form of vitamin C, vitamin D, zinc supplement, and she is on Zosyn and vancomycin, for antibiotic coverage for gram-positive cocci in clusters. Final culture is in progress. T-max in the last 24 hours was 99.6F. On 07/04/2020 patient seen in follow-up on medical surgical floor, she is resting comfortably in bed, she is a bit confused, but seems to be responding more appropriately on today's exam and interview, appears to yesterday, she is on 2 L of oxygen, Cytoxan 79-92%, no worsening dyspnea, appears to be breathing comfortably, low-grade fever this afternoon with a temp of 99, she states she does feel short of breath, but appears to be in no acute distress, her last chest x-ray was yesterday showing patchy perihilar Infiltrates persist is wi thout significant interval change. Patient had a single blood culture positive for coagulase-negative staph, which is likely skin contaminant, vancomycin was discontinued, Zosyn was discontinued, and ID service is following Objective - Vital Signs Vital signs: Vital Signs Temp 99 F 07/04/20 14:13 Pulse 57 L 07/04/20 14:13 Resp 17 07/04/20 14:13 BP 95/68 07/04/20 14:13 Pulse Ox 89 L 07/04/20 14:13 Intake & Output 07/03/20 07/04/20 07/04/20 18:59 06:59 18:59 Intake Total 200 Output Total 600 800 Balance -600 -600 Weight 83.915 kg Intake: Oral 200 Output: Urine 600 800 Other: Voiding Method Indwelling Catheter Indwelling Catheter Indwelling Catheter # Bowel Movements 1 - Exam GENERAL EXAM: Alert, very pleasant, 75-year-old white female, currently on 2 L oxygen with a pulse ox of 90%, resting comfortably in bed, comfortable in no apparent distress. HEAD: Normocephalic/atraumatic. EYES: Normal reaction of pupils, equal size. Conjunctiva pink, sclera white. NOSE: Clear with pink turbinates. THROAT: No erythema or exudates. NECK: No masses, no JVD, no thyroid enlargement, no adenopathy. CHEST: No chest wall deformity. Symmetrical expansion. LUNGS: Equal air entry with mild bibasilar crackles, but no wheezes, no rhonchi CVS: Regular rate and rhythm, normal S1 and S2, no gallops, no murmurs, no rubs ABDOMEN: Soft, nontender. No hepatosplenomegaly, normal bowel sounds, no guarding or rigidity. EXTREMITIES: No clubbing, no edema, no cyanosis, 2+ pulses and upper and lower extremities. MUSCULOSKELETAL: Muscle strength and tone normal. SPINE: No scoliosis or deformity SKIN: No rashes CENTRAL NERVOUS SYSTEM: Alert and oriented -3. No focal deficits, tone is normal in all 4 extremities. PSYCHIATRIC: Alert and oriented -3. Appropriate affect. Intact judgment and insight. - Labs CBC & Chem 7: 07/03/20 05:34 07/04/20 05:49 Labs: Microbiology - Last 24 Hours (Table) 06/30/20 16:50 Blood Culture Gram Stain - Final Blood Blood Culture - Final Coagulase Negative Staph Coagulase Negative Staph#2 07/01/20 17:43 Blood Culture - Preliminary Blood No Growth after 48 hours Assessment and Plan Plan: Assessment: #1. Acute pulmonary infection, the patient denies any major pulmonary symptoms, she is on minimal amount of supplemental oxygen, her chest x-ray shows left lower lobe infiltrate, findings not typical of COVID 19 pneumonitis, patient is currently covered with the combination of cefepime, doxycycline and vancomycin #2. Acute urinary tract infection #3. Gram-positive bacteremia, blood culture showed gram-positive cocci in clusters, patient is covered with the vancomycin, in addition patient is also on cefepime and doxycycline, final cultures are pending, follow-up cultures have been negative #4. Long-standing history of multiple sclerosis, diagnosed over 45 years ago #5. Medical debility, patient is essentially bedbound for last 15 years requiring total care, patient lives at home with her who is her primary caregiver #6. Previous history of CVA/TIA #7. Diabetes mellitus #8. Chronic neurogenic bladder secondary to multiple sclerosis, with indwelling suprapubic catheter Plan: Obtain follow-up chest x-ray in the morning, antibiotics per ID service recommendations, continued on Decadron, and vitamins and zinc supplement, continue anticoagulation in the form of Lovenox. Discharge planning is in progress for possible discharge home in the next 24-48 hours I performed a history & physical examination of the patient and discussed their management with my nurse practitioner, Marcela Chaparro. I reviewed the nurse practitioner's note and agree with the documented findings and plan of care. Lung sounds are positive for diminished breath sounds. The findings and the impression was discussed with the patient. I attest to the documentation by the nurse practitioner. Time with Patient: Less than 30
[2020-07-04] MEDS: MELATONIN 5 MG TABLET PO SCH (20:48)
[2020-07-04] MEDS: PRAVASTATIN SODIUM 80 MG TAB PO SCH (20:48)
[2020-07-04] MEDS: DOCUSATE 100 MG CAP PO SCH (20:49)
[2020-07-04] MEDS: ACETAMINOPHEN TAB 325 MG TAB PO PRN (20:49)
[2020-07-04] MEDS: METOPROLOL SUCCINATE (ER) 25 MG TAB.ER.24H PO SCH (20:49)
[2020-07-04] MEDS: ONDANSETRON 4 MG/2 ML VIAL IVP PRN (20:58)
[2020-07-04] MEDS ORDERED: guaiFENesin SYRUP 100MG/5ML 200 MG/10 ML CUP PO PRN (21:38)
--- NOTE | 2020-07-04 23:32 | PN ---
PROGRESS NOTE DATE OF SERVICE: 07/04/2020 REASON FOR FOLLOWUP: 1. Positive blood culture, likely contaminant. 2. COVID-19 pneumonia. INTERVAL HISTORY: The patient is currently afebrile. The patient seems to be more awake and alert. She is breathing comfortably. Denies having any chest pain. Minimal cough. No abdominal pain or diarrhea. PHYSICAL EXAMINATION: Blood pressure 113/54 with a pulse of 66, temperature 99.2. She is 93% on 2 L nasal cannula. General description is an elderly female lying in bed in no distress. RESPIRATORY SYSTEM: Unlabored breathing with decreased intensity of breath sounds. No wheeze. HEART: S1, S2. Regular rate and rhythm. ABDOMEN: Soft. No tenderness. LABS: Hemoglobin is 12.3, white count 5.0, BUN of 32, creatinine 0.87. Blood culture repeat negative. DIAGNOSTIC IMPRESSION AND PLAN: 1. Patient with positive blood culture with coagulase-negative Staph, likely contaminant. Repeat blood culture negative. vancomycin. 2. Patient with COVID-19 pneumonia, mild infection, currently covered with dexamethasone, Lovenox and zinc along with respiratory support. Monitor clinical course closely. MMODL / IJN: [id number] /
[2020-07-05] MEDS: BACLOFEN 10 MG TAB PO SCH ×4 (05:11→22:43)
[2020-07-05] MEDS: dexAMETHasone 2 MG TAB PO SCH (07:29)
[2020-07-05] MEDS: ZINC SULFATE 220 MG CAP PO SCH (07:29)
[2020-07-05] MEDS: ASCORBIC ACID 500 MG TAB PO SCH (07:29)
[2020-07-05] MEDS: CHOLECALCIFEROL 1,000 UNIT TAB PO SCH (07:29)
[2020-07-05] MEDS: FLUoxetine HCL 20 MG CAP PO SCH ×2 (07:29→21:46)
[2020-07-05] MEDS: bisacodyL 10 MG SUPP RECTAL SCH (07:30)
[2020-07-05] MEDS: OXYBUTYNIN 10 MG TAB.ER.24 PO SCH (07:30)
[2020-07-05] MEDS: ENOXAPARIN 40 MG/0.4 ML SYRINGE SQ SCH (07:30)
--- NOTE | 2020-07-05 08:14 | XR ---
EXAMINATION TYPE: XR chest 1V portable DATE OF EXAM: 07/05/2020 COMPARISON: 07/03/2020 INDICATION: Covid TECHNIQUE: Single frontal view of the chest is obtained. FINDINGS: The heart size is enlarged. The pulmonary vasculature is normal. There is a right upper lobe infiltrate. Patchy infiltrates are in the left perihilar and right lower lobes. Right lower lobe infiltrate is developing. IMPRESSION: 1. Developing right lower lobe infiltrate. 2. Worsening right upper and left perihilar infiltrates
[2020-07-05] MEDS: lisinopriL 10 MG TAB PO SCH (09:38)
[2020-07-05] MEDS: ACETAMINOPHEN TAB 325 MG TAB PO PRN ×2 (10:17→22:56)
--- NOTE | 2020-07-05 11:48 | CDI ---
Documentation Clarification Form Date: 07/05/2020 11:16:56 AM From: Doreen Patel RN, CCDS Admit Date: 06/30/2020 05:31:00 PM Patient Name: Yanet Perkins Visit Number: [id number] Discharge Date: ATTENTION: The Clinical Documentation Specialists (CDI) and [facility] Coding Staff appreciate your assistance in clarifying documentation. Please respond to the clarification below the line at the bottom and electronically sign. The CDI & [facility] Coding staff will review the response and follow-up if needed. Please note: Queries are made part of the Legal Health Record. If you have any questions, please contact the author of this message via ITS. Dr. Evelia Waters The diagnosis suspected sepsis secondary to UTI was documented in the H/P, progress notes through but is not noted in subsequent documentation. Please render your opinion on Sepsis without septic shock. History/Risk Factors: CVA, TIA, ,Diabetes mellitus, MS Clinical Indicators: 75-year-old female transferred from [facility] for evaluation of UTI, sepsis. She had increased cough, fever, and lethargy. She is bedbound secondary to long-standing MS 06/30 Vital signs: 101/60 101 18 98.0 96 % 2/L 06/30 Covid-19: Detected 06/30 Labs: WBC 11.9; UA turbid, urine nitrate Positive, Ur Leukocyte Esterase large Treatment: Monitor O2 requirements .9NS 500 ml bolus then 130 mls/hr 06/30-07/01 Vancomycin 1,500 mg IVPB PTD Zosyn 3.375 gm IVPB Q 8 hrs 07/01-07/02 Dexamethasone 6 mg po daily Please clarify if the Sepsis was: Present/active this admission Treated and resolved this admission Ruled out Other, please specify Clinically unable to determine (Last Query Form Revision: March 2019) Present/active this admission MTDD
--- NOTE | 2020-07-05 15:00 | P.PN ---
Subjective Progress Note Date: 07/05/20 Principal diagnosis: Change in mental status Patient had increased o2 requirements since last night, her O2 had to be bumped up to 4L. She constantly asks to go home. Not verbalizing any more complaints. No fevers recorded. Objective - Vital Signs Vital signs: Vital Signs Temp 98.2 F 07/05/20 14:00 Pulse 64 07/05/20 14:00 Resp 16 07/05/20 14:00 BP 108/68 07/05/20 14:00 Pulse Ox 90 L 07/05/20 14:00 Intake & Output 07/04/20 07/05/20 07/05/20 18:59 06:59 18:59 Intake Total 228 Output Total 601 350 702 Balance -601 -350 -474 Weight 83.915 kg Intake: Oral 228 Output: Urine 600 350 700 Stool 1 2 Other: Voiding Method Indwelling Catheter Indwelling Catheter Indwelling Catheter - Exam General: [non toxic], [no distress], [appears at stated age] Derm: [warm], [dry] Head: [atraumatic], [normocephalic], [symmetric] Eyes: [EOMI], [no lid lag], [anicteric sclera] Mouth: [no lip lesion], [mucus membranes moist] Cardiovascular: [S1S2 reg], [no murmur], [positive posterior tibial pulse bilateral], Lungs: [Rhonchi bilateral], [no rales] , [no accessory muscle use] Abdominal: [soft], [ nontender to palpation], [no guarding], [no appreciable organomegaly] Ext: [no gross muscle atrophy], [no edema], [no contractures] Neuro: [ CN II-XI grossly intact], [no focal neuro deficits] Psych: Alert and does not respond appropriately to questions - Labs CBC & Chem 7: 07/03/20 05:34 07/04/20 05:49 Labs: Microbiology - Last 24 Hours (Table) 07/01/20 17:43 Blood Culture - Preliminary Blood No Growth after 72 hours Assessment and Plan Plan: -COVID pneumonitis Due to increased O2 requirement, and new infiltrates noted on the CXR, suspect bacterial pneumonia/superinfection vs. aspiration Add zosyn, d/w ID Continue decadron Lovenox s.q, melatonin and vitamins. Follow up blood cx negative, vanco d/korey per ID Continue with IVF hydration with normal saline Followed by pulm and ID -chronic conditions: -MS with contractures, muscle relaxants -bedbound -DM , insulin sliding scale -swallow eval bedside -full code -Lovenox sc for DVT ppx -PPI for GI ppx -anticipated discharge 1-2 days -anticipated discharge home with home care
--- NOTE | 2020-07-05 15:05 | P.PN ---
Subjective Progress Note Date: 07/05/20 Principal diagnosis: Acute urinary tract infection, acute bacteremia, COVID 19 pneumonia This is a 75-year-old female with history of MS which was diagnosed over 45 years ago, patient has been bedbound for the last 15 years. Her MS has been progressive and debilitating over the years. Patient was transferred from [facility] and she was seen for urinary tract infection and possible sepsis. Chest x-ray while inpatient showed left lower lobe infiltrate, patient had a covid PCR test, and it was reported as positive. Patient is not a great historian, however I was able to discuss some of this history with the over the phone, and the patient had mostly symptoms of headaches, and symptoms of cough. No shortness of breath, no GI symptoms, patient has chronic loss of sensation of smell and taste according to her and according to the . Apparently had URI symptoms about a few weeks ago, and that may have been covid related, however he was never tested because his symptoms were not very severe. On admission the patient was noted to have relatively normal CBC with slight leukocytosis, normal electrolytes profile, and she clearl y had abnormal urinalysis with positive leukocyte esterase, and there was evidence of bacteriuria and pyuria. Patient was placed empirically on vancomycin and Zosyn, and she is now on Decadron at 6 mg by mouth daily. Patient is also on vitamin D, and zinc. As well as vitamin C. She is also on heparin 5000 units subcu every 8 hours On 07/02/2020 patient seen in follow-up on the surgical floor. She is resting comfortably in bed, she denies any worsening shortness of breath, her breathing seems to be comfortable, she is currently on 2 L of oxygen her pulse ox is 98%, she was not Remdesivir candidate related to mild nature of her pulmonary symptoms, and it any major pulmonary symptoms, she denies any cough, no chest discomfort, she is on minimal amount of supplemental oxygen, she remains on oral Decadron, and supplements in the form of vitamin C, vitamin D, zinc supplement, and she is on Zosyn and vancomycin, for antibiotic coverage for gram-positive cocci in clusters. Final culture is in progress. T-max in the last 24 hours was 99.6F. On 07/04/2020 patient seen in follow-up on medical surgical floor, she is resting comfortably in bed, she is a bit confused, but seems to be responding more appropriately on today's exam and interview, appears to yesterday, she is on 2 L of oxygen, Cytoxan 79-92%, no worsening dyspnea, appears to be breathing comfortably, low-grade fever this afternoon with a temp of 99, she states she does feel short of breath, but appears to be in no acute distress, her last chest x-ray was yesterday showing patchy perihilar Infiltrates persist is wi thout significant interval change. Patient had a single blood culture positive for coagulase-negative staph, which is likely skin contaminant, vancomycin was discontinued, Zosyn was discontinued, and ID service is following On 07/05/2020 patient seen in follow-up on medical surgical floor, she is still intermittently confused, she is awake, she appears to be in acute distress, but her oral membranes are very dry, patient seems to be hydrated, nursing staff reports that she has had poor oral intake and poor water intake. IV fluids at 0.9 normal saline at a rate of 20 ML per hour, breathing seems to be comfortable. Remains on oral Decadron, she is on prophylactic doses of Lovenox, Zosyn was restarted per attending. Patient is afebrile, she is currently on 4 L of oxygen her pulse ox is 90. Chest x-ray today shows developing right lower lobe infiltrate, and worsening right upper and left perihilar infiltrates Objective - Vital Signs Vital signs: Vital Signs Temp 98.2 F 07/05/20 14:00 Pulse 64 07/05/20 14:00 Resp 16 07/05/20 14:00 BP 108/68 07/05/20 14:00 Pulse Ox 90 L 07/05/20 14:00 Intake & Output 07/04/20 07/05/20 07/05/20 18:59 06:59 18:59 Intake Total 228 Output Total 601 911 702 Balance -456 -775 -063 Weight 83.915 kg Intake: Oral 228 Output: Urine 600 350 700 Stool 1 2 Other: Voiding Method Indwelling Catheter Indwelling Catheter Indwelling Catheter - Exam GENERAL EXAM: Alert, confused very pleasant, 75-year-old white female, currently on 4 L oxygen with a pulse ox of 90%, resting comfortably in bed, comfortable in no apparent distress. HEAD: Normocephalic/atraumatic. EYES: Normal reaction of pupils, equal size. Conjunctiva pink, sclera white. NOSE: Clear with pink turbinates. MOUTH: Oral membranes are dry THROAT: No erythema or exudates. NECK: No masses, no JVD, no thyroid enlargement, no adenopathy. CHEST: No chest wall deformity. Symmetrical expansion. LUNGS: Equal air entry with mild bibasilar crackles, but no wheezes, no rhonchi CVS: Regular rate and rhythm, normal S1 and S2, no gallops, no murmurs, no rubs ABDOMEN: Soft, nontender. No hepatosplenomegaly, normal bowel sounds, no guarding or rigidity. EXTREMITIES: No clubbing, no edema, no cyanosis, 2+ pulses and upper and lower extremities. MUSCULOSKELETAL: Muscle strength and tone normal. SPINE: No scoliosis or deformity SKIN: No rashes CENTRAL NERVOUS SYSTEM: Alert and oriented -1. No focal deficits, tone is normal in all 4 extremities. PSYCHIATRIC: Alert and oriented -1. Confused - Labs CBC & Chem 7: 07/03/20 05:34 07/04/20 05:49 Labs: Microbiology - Last 24 Hours (Table) 07/01/20 17:43 Blood Culture - Preliminary Blood No Growth after 72 hours Assessment and Plan Plan: Assessment: #1. Acute COVID 19 infection, the patient denies any major pulmonary symptoms, she is on minimal amount of supplemental oxygen, her chest x-ray shows left lower lobe infiltrate, findings not typical of COVID 19 pneumonitis, patient is currently covered with the combination of cefepime, doxycycline and vancomycin On 07/05/2020 patient's chest x-ray shows worsening bilateral pulmonary in filtrates, and developing right lower lobe infiltrate, she was covered with Zosyn #2. Acute urinary tract infection, urine culture did not show any growth #3. Gram-positive bacteremia, blood culture coagulase-negative staph, likely related to contamination, patient was covered with vancomycin, in addition patient is also on cefepime and doxycycline, which were discontinued after finalized cultures. Blood cultures have shown no growth #4. Long-standing history of multiple sclerosis, diagnosed over 45 years ago #5. Medical debility, patient is essentially bedbound for last 15 years requ [facility], patient lives at home with her who is her primary caregiver #6. Previous history of CVA/TIA #7. Diabetes mellitus #8. Chronic neurogenic bladder secondary to multiple sclerosis, with indwelling suprapubic catheter Plan: Continue with antibiotics, lisinopril calcitonin level, today's chest x-ray shows worsening in the appearance of bilateral infiltrates, and developing right lower lobe infiltrate. We will increase IV fluids 100 ML per hour, patient seems to be clinically dehydrated, antibiotics per ID service recommendations. Continue Decadron, continue Lovenox, we'll continue to follow I performed a history & physical examination of the patient and discussed their management with my nurse practitioner, Marcela Chaparro. I reviewed the nurse practitioner's note and agree with the documented findings and plan of care. Lung sounds are positive for diminished breath sounds. The findings and the impression was discussed with the patient. I attest to the documentation by the nurse practitioner. Time with Patient: Less than 30
[2020-07-05] MEDS: SODIUM CHLORIDE 0.9% 1,000 ML IV SCH (16:08)
[2020-07-05] MEDS: PIPERACILLIN-TAZOBACTAM 3.375 GM in SODIUM CHLORIDE 0.9% 100 ML IVPB SCH (16:08)
[2020-07-05 16:37] LABS: Glucose,Whole Blood 171 mg/dL (75-99)
[2020-07-05 20:43] LABS: Glucose,Whole Blood 221 mg/dL (75-99)
[2020-07-05] MEDS: PRAVASTATIN SODIUM 80 MG TAB PO SCH (21:45)
[2020-07-05] MEDS: MELATONIN 5 MG TABLET PO SCH (21:45)
[2020-07-05] MEDS: METOPROLOL SUCCINATE (ER) 25 MG TAB.ER.24H PO SCH (21:46)
[2020-07-05] MEDS: DOCUSATE 100 MG CAP PO SCH (21:46)
[2020-07-05] MEDS: ONDANSETRON 4 MG/2 ML VIAL IVP PRN (22:45)
[2020-07-06] MEDS: PIPERACILLIN-TAZOBACTAM 3.375 GM in SODIUM CHLORIDE 0.9% 100 ML IVPB SCH ×3 (00:06→15:46)
[2020-07-06] MEDS: SODIUM CHLORIDE 0.9% 1,000 ML IV SCH ×3 (00:10→15:47)
--- NOTE | 2020-07-06 00:13 | PN ---
PROGRESS NOTE DATE OF SERVICE: 07/05/2020 REASON FOR FOLLOWUP: Pneumonia. INTERVAL HISTORY: The patient is currently afebrile. The patient is breathing comfortably. She had slight hypoxia earlier. The patient denies having any chest pain. She did have a cough, not bringing up sputum. No vomiting or diarrhea has been reported. Patient herself is not a good historian. PHYSICAL EXAMINATION: Blood pressure 104/52 with a pulse of 77, temperature 98.1. She is 95% on 4 L nasal cannula. General description is an elderly female lying in bed in no distress. Respiratory system: Unlabored breathing. Decreased breath sounds at the bases. No wheeze. HEART: S1, S2. Regular rate and rhythm. ABDOMEN: Soft, no tenderness. LABS: No new labs have been obtained today. Chest x-ray showing more worsening right lower lobe. IMPRESSION/PLAN: 1. The patient admitted to the hospital with nausea and vomiting and respiratory distress with concern for COVID-19 infection, currently being treated with dexamethasone, Lovenox and zinc. 2. Positive coagulase negative Staph likely contaminant. 3. More infected right lower lobe with concern for possible pneumonia. Zosyn has been added. We will try to obtain a sputum and monitor clinical course closely. MMODL / IJN: [id number] /
[2020-07-06] MEDS: BACLOFEN 10 MG TAB PO SCH ×4 (05:36→21:10)
[2020-07-06 06:51] LABS: Basophils % (A) 0 %; Eosinophils % (A) 0 %; HGB 12.8 gm/dL (11.4-16.0); Lymphocytes # (A) 0.8 k/uL (1.0-4.8); Lymphocytes % (A) 12 %; MCH 30.9 pg (25.0-35.0); MCHC 33.7 g/dL (31.0-37.0); MCV 91.5 fL (80.0-100.0); Mean Platelet Volume 8.2; Monocytes # (A) 0.4 k/uL (0-1.0); Monocytes % (A) 6 %; Neutrophils # (A) 5.3 k/uL (1.3-7.7); Neutrophils % (A) 81 %; Platelet Count 201 k/uL (150-450); RBC 4.15 m/uL (3.80-5.40); RDW 13.4 % (11.5-15.5); WBC 6.5 k/uL (3.8-10.6)
[2020-07-06] MEDS: lisinopriL 10 MG TAB PO SCH (09:13)
[2020-07-06] MEDS: ENOXAPARIN 40 MG/0.4 ML SYRINGE SQ SCH (09:13)
[2020-07-06] MEDS: dexAMETHasone 2 MG TAB PO SCH (09:13)
[2020-07-06] MEDS: ASCORBIC ACID 500 MG TAB PO SCH (09:13)
[2020-07-06] MEDS: ZINC SULFATE 220 MG CAP PO SCH (09:13)
[2020-07-06] MEDS: CHOLECALCIFEROL 1,000 UNIT TAB PO SCH (09:13)
[2020-07-06] MEDS: FLUoxetine HCL 20 MG CAP PO SCH ×2 (09:13→21:11)
[2020-07-06] MEDS: OXYBUTYNIN 10 MG TAB.ER.24 PO SCH (09:14)
[2020-07-06 10:55] LABS: African American GFR (CKD) 104.1 (60.0-200.0); Albumin 3.1 g/dL (3.80-4.90); Albumin/Globulin Ratio 1.63 (1.60-3.17); Anion Gap 8.4 mmol/L (4.00-12.00); BUN/Creat Ratio 48.33 Ratio (12.00-20.00); C Reactive Protein 13.1 mg/dL (0.0-0.8); Calcium 8.5 mg/dL (8.7-10.3); Carbon Dioxide 26.6 mmol/L (21.6-31.8); Ferritin 377.2 ng/mL (10.0-291.0); Globulin 1.9 g/dL (1.6-3.3); Non-African American GFR(CKD) 89.8 (60.0-200.0); Total Bilirubin 0.4 mg/dL (0.3-1.2)
[2020-07-06] MEDS: ACETAMINOPHEN TAB 325 MG TAB PO PRN (10:56)
--- NOTE | 2020-07-06 14:23 | P.PN ---
Subjective Progress Note Date: 07/06/20 Principal diagnosis: Acute CoVID 19 pneumonia, urinary tract infection, bacteremia This is a 75-year-old female with history of MS which was diagnosed over 45 years ago, patient has been bedbound for the last 15 years. Her MS has been progressive and debilitating over the years. Patient was transferred from [facility] and she was seen for urinary tract infection and possible sepsis. Chest x-ray while inpatient showed left lower lobe infiltrate, patient had a covid PCR test, and it was reported as positive. Patient is not a great historian, however I was able to discuss some of this history with the over the phone, and the patient had mostly symptoms of headaches, and symptoms of cough. No shortness of breath, no GI symptoms, patient has chronic loss of sensation of smell and taste according to her and according to the . Apparently had URI symptoms about a few weeks ago, and that may have been covid related, however he was never tested because his symptoms were not very severe. On admission the patient was noted to have relatively normal CBC with slight leukocytosis, normal electrolytes profile, and she clearly had abnormal urinalysis with positive leukocyte esterase, and there was evidence of bacteriuria and pyuria. Patient was placed empirically on vancomycin and Zosyn, and she is now on Decadron at 6 mg by mouth daily. Patient is also on vitamin D, and zinc. As well as vitamin C. She is also on heparin 5000 units subcu every 8 hours On 07/02/2020 patient seen in follow-up on the surgical floor. She is resting comfortably in bed, she denies any worsening shortness of breath, her breathing seems to be comfortable, she is currently on 2 L of oxygen her pulse ox is 98%, she was not Remdesivir candidate related to mild nature of her pulmonary symptoms, and it any major pulmonary symptoms, she denies any cough, no chest discomfort, she is on minimal amount of supplemental oxygen, she remains on oral Decadron, and supplements in the form of vitamin C, vitamin D, zinc supplement, and she is on Zosyn and vancomycin, for antibiotic coverage for gram-positive cocci in clusters. Final culture is in progress. T-max in the last 24 hours was 99.6F. The patient is seen today 07/03/2020 in follow-up on the regular medical floor. She is resting comfortably in bed. Awake and alert in no acute distress. Maintaining O2 saturations in the upper 90s on 2 L/m per nasal cannula. She's been afebrile. Initial blood cultures positive for coag-negative staph. Follow-up blood cultures revealing no growth. Urine culture revealing no growth. White count 5.0. Hemoglobin 12.6. Lymphocytes 0.9. Sodium 144. Potassium 4.0. Creatinine 0.8. She is continued on Lovenox, dexamethasone, vitamin supplements. Antibiotics discontinued. The patient is seen today 07/06/2020 in follow-up on the regular medical floor. She is currently resting comfortably in bed. Awake and alert in no acute distre ss. She is still requiring 15 L high flow nasal cannula to maintain O2 saturation in the 90s. Occasionally also requires a nonrebreather mask. She remains on Zosyn. ID is on the case. White count 6.5. Hemoglobin 12.8. D- dimer 0.86. Sodium 144. Potassium 4.0. Creatinine 0.6. Ferritin 377. LDH 412. C-reactive protein 13.1. Pro-calcitonin 0.08. She is continued on Lovenox, dexamethasone, vitamin supplements. Objective - Vital Signs Vital signs: Vital Signs Temp 97.2 F L 07/06/20 10:37 Pulse 70 07/06/20 10:37 Resp 16 07/06/20 10:37 BP 143/61 07/06/20 10:37 Pulse Ox 94 L 07/06/20 10:37 Intake & Output 07/05/20 07/06/20 07/06/20 18:59 06:59 18:59 Intake Total 228 Output Total 702 701 Balance -474 -701 Intake: Oral 228 Output: Urine 700 700 Stool 2 1 Other: Voiding Method Indwelling Catheter Indwelling Catheter Indwelling Catheter # Voids 4 # Bowel Movements 1 1 - Exam GENERAL EXAM: Alert, very pleasant, 75-year-old female patient, currently on 15 L oxygen with a pulse ox of 94%, resting comfortably in bed, no apparent distress. HEAD: Normocephalic/atraumatic. EYES: Normal reaction of pupils, equal size. Conjunctiva pink, sclera white. NOSE: Clear with pink turbinates. THROAT: No erythema or exudates. NECK: No masses, no JVD, no thyroid enlargement, no adenopathy. CHEST: No chest wall deformity. Symmetrical expansion. LUNGS: Equal air entry with mild bibasilar crackles, but no wheezes, no rhonchi CVS: Regular rate and rhythm, normal S1 and S2, no gallops, no murmurs, no rubs ABDOMEN: Soft, nontender. No hepatosplenomegaly, normal bowel sounds, no guarding or rigidity. EXTREMITIES: No clubbing, no edema, no cyanosis, 2+ pulses and upper and lower extremities. MUSCULOSKELETAL: Muscle strength and tone normal. SPINE: No scoliosis or deformity SKIN: No rashes CENTRAL NERVOUS SYSTEM: No focal deficits, tone is normal in all 4 extremities. PSYCHIATRIC: Alert and oriented -3. Appropriate affect. Intact judgment and insight. - Labs CBC & Chem 7: 07/06/20 05:30 07/06/20 05:30 Labs: Abnormal Lab Results - Last 24 Hours (Table) 07/05/20 07/05/20 07/06/20 Range/Units 16:36 20:39 05:30 Lymphocytes # 0.8 L (1.0-4.8) k/uL D-Dimer (<0.60) mg/L FEU BUN (9.0-27.0) mg/dL BUN/Creatinine Ratio (12.00-20.00) Ratio Glucose (70-110) mg/dL POC Glucose (mg/dL) 171 H 221 H (75-99) mg/dL Calcium (8.7-10.3) mg/dL Ferritin (10.0-291.0) ng/mL AST (13-35) U/L Lactate Dehydrogenase (120-246) U/L C-Reactive Protein (0.0-0.8) mg/dL Total Protein (6.2-8.2) g/dL Albumin (3.80-4.90) g/dL 07/06/20 07/06/20 Range/Units 05:30 05:30 Lymphocytes # (1.0-4.8) k/uL D-Dimer 0.86 H (<0.60) mg/L FEU BUN 29.0 H (9.0-27.0) mg/dL BUN/Creatinine Ratio 48.33 H (12.00-20.00) Ratio Glucose 135 H (70-110) mg/dL POC Glucose (mg/dL) (75-99) mg/dL Calcium 8.5 L (8.7-10.3) mg/dL Ferritin 377.2 H (10.0-291.0) ng/mL AST 43 H (13-35) U/L Lactate Dehydrogenase 412 H (120-246) U/L C-Reactive Protein 13.1 H (0.0-0.8) mg/dL Total Protein 5.0 L (6.2-8.2) g/dL Albumin 3.10 L (3.80-4.90) g/dL Microbiology - Last 24 Hours (Table) 07/01/20 17:43 Blood Culture - Preliminary Blood No Growth after 96 hours Assessment and Plan Assessment: 1 Acute hypoxic respiratory failure secondary to acute CoVID 19 pneumonitis 2 Suspect urinary tract infection cultures reveal no growth 3 Gram-positive bacteremia, blood culture showed gram-positive cocci in clusters, follow-up blood cultures reveal no growth 4 Long-standing history of multiple sclerosis, diagnosed over 45 years ago 5 Medical debility, patient is essentially bedbound for last 15 years requiring total care, patient lives at home with her who is her primary caregiver 6 Previous history of CVA/TIA 7 Diabetes mellitus 8 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 Frank Titrate down the FiO2 as tolerated Continue Lovenox and dexamethasone Continue vitamin supplement We will continue to follow make further recommendations based on her clinical status I, the cosigning physician, performed a history & physical examination of the patient. Lungs sounds with basilar crackles Maintaining good O2 saturations in the 90s on 15 L/m high flow nasal cannula. I discussed the assessment and plan of care with my nurse practitioner, Eunice Bobby. I attest to the above note as dictated by her.
--- NOTE | 2020-07-06 15:14 | P.PN ---
Subjective Progress Note Date: 07/06/20 Principal diagnosis: Change in mental status Patient's oxygen requirements have gone up since last night. She is currently requiring 15 L nasal cannula. According to nursing staff her O2 sats were dropping into the 80s and 70s. Objective - Vital Signs Vital signs: Vital Signs Temp 97.2 F L 07/06/20 10:37 Pulse 70 07/06/20 10:37 Resp 16 07/06/20 10:37 BP 143/61 07/06/20 10:37 Pulse Ox 94 L 07/06/20 10:37 Intake & Output 07/05/20 07/06/20 07/06/20 18:59 06:59 18:59 Intake Total 228 Output Total 702 701 Balance -474 -701 Intake: Oral 228 Output: Urine 700 700 Stool 2 1 Other: Voiding Method Indwelling Catheter Indwelling Catheter Indwelling Catheter # Voids 4 # Bowel Movements 1 1 - Exam General: [non toxic], [no distress], [appears at stated age] Derm: [warm], [dry] Head: [atraumatic], [normocephalic], [symmetric] Eyes: [EOMI], [no lid lag], [anicteric sclera] Mouth: [no lip lesion], [mucus membranes moist] Cardiovascular: [S1S2 reg], [no murmur], [positive posterior tibial pulse bilateral], Lungs: [Rhonchi bilateral], [no rales] , [no accessory muscle use] Abdominal: [soft], [ nontender to palpation], [no guarding], [no appreciable organomegaly] Ext: [no gross muscle atrophy], [no edema], [no contractures] Neuro: [ CN II-XI grossly intact], [no focal neuro deficits] Psych: Alert and does not respond appropriately to questions - Labs CBC & Chem 7: 07/06/20 05:30 07/06/20 05:30 Labs: Abnormal Lab Results - Last 24 Hours (Table) 07/05/20 07/05/20 07/06/20 Range/Units 16:36 20:39 05:30 Lymphocytes # 0.8 L (1.0-4.8) k/uL D-Dimer (<0.60) mg/L FEU BUN (9.0-27.0) mg/dL BUN/Creatinine Ratio (12.00-20.00) Ratio Glucose (70-110) mg/dL POC Glucose (mg/dL) 171 H 221 H (75-99) mg/dL Calcium (8.7-10.3) mg/dL Ferritin (10.0-291.0) ng/mL AST (13-35) U/L Lactate Dehydrogenase (120-246) U/L C-Reactive Protein (0.0-0.8) mg/dL Total Protein (6.2-8.2) g/dL Albumin (3.80-4.90) g/dL 07/06/20 07/06/20 Range/Units 05:30 05:30 Lymphocytes # (1.0-4.8) k/uL D-Dimer 0.86 H (<0.60) mg/L FEU BUN 29.0 H (9.0-27.0) mg/dL BUN/Creatinine Ratio 48.33 H (12.00-20.00) Ratio Glucose 135 H (70-110) mg/dL POC Glucose (mg/dL) (75-99) mg/dL Calcium 8.5 L (8.7-10.3) mg/dL Ferritin 377.2 H (10.0-291.0) ng/mL AST 43 H (13-35) U/L Lactate Dehydrogenase 412 H (120-246) U/L C-Reactive Protein 13.1 H (0.0-0.8) mg/dL Total Protein 5.0 L (6.2-8.2) g/dL Albumin 3.10 L (3.80-4.90) g/dL Microbiology - Last 24 Hours (Table) 07/01/20 17:43 Blood Culture - Preliminary Blood No Growth after 96 hours Assessment and Plan Plan: -COVID pneumonitis Due to increased O2 requirement, and new infiltrates noted on the CXR, suspect bacterial pneumonia/superinfection vs. aspiration Added zosyn and 07/05, d/w ID Continue decadron Lovenox s.q, melatonin and vitamins. Follow up blood cx negative, vanco d/korey per ID Continue with IVF hydration with normal saline Followed by pulm and ID -chronic conditions: -MS with contractures, muscle relaxants -bedbound -DM , insulin sliding scale -swallow eval bedside -full code -Lovenox sc for DVT ppx -PPI for GI ppx -anticipated discharge 3-4 days -anticipated discharge home with home care
[2020-07-06] MEDS: METOPROLOL SUCCINATE (ER) 25 MG TAB.ER.24H PO SCH (21:10)
[2020-07-06] MEDS: DOCUSATE 100 MG CAP PO SCH (21:10)
[2020-07-06] MEDS: PRAVASTATIN SODIUM 80 MG TAB PO SCH (21:10)
[2020-07-06] MEDS: MELATONIN 5 MG TABLET PO SCH (21:11)
--- NOTE | 2020-07-06 22:40 | PN ---
PROGRESS NOTE DATE OF SERVICE: 07/06/2020. REASON FOR FOLLOW UP: Covid 19 pneumonia, question of possible aspiration pneumonia. INTERVAL HISTORY: The patient is currently afebrile. The patient is breathing more comfortably. She is not a very good historian though. No vomiting, diarrhea or any other changes reported by the Nursing staff. PHYSICAL EXAMINATION: Blood pressure 142/87, pulse of 85, temperature 97.6. She is 92% on room air. General description is an elderly female lying in bed in no distress. Respiratory system: Unlabored breathing, decreased breath sounds in the bases. No wheeze. Heart S1, S2. Regular rate and rhythm. Abdomen soft, no tenderness. LABS: Hemoglobin 12.1, white count 6.5. BUN of 29, creatinine 0.6. DIAGNOSTIC IMPRESSION/PLAN: 1. Patient with positive blood culture, coagulase negative Staph likely contaminant. 2. Patient with Covid 19 pneumonia with concern for possible aspiration. The patient is currently on Dexamethasone, Lovenox and Zosyn to continue and monitor clinical course closely. MMODL / IJN: [id number] /
[2020-07-06 22:41] VITALS: BP 144/80; PULSE 114; RESP 18; TEMP 97.2
--- NOTE | 2020-07-07 04:15 | P.EN ---
Code Blue Note Code blue activated at 2313. Arrived on the scene shortly after. Discussed the case with the RN and reviewed the patient's chart. The patient was apparently noted to be in asystole by telemetry and the nurse was notified who immediately activated CODE BLUE. The patient continued to be in asystole throughout the code and subsequently at 2324. The patient's (Leo) was notified by the RN. Please refer to the code sheet for further details.
--- NOTE | 2020-07-10 19:54 | P.DS ---
Providers Date of admission: 06/30/20 17:31 Expected date of discharge: 07/06/20 Attending physician: Isatu Lainez DO Consults: 06/30/20 23:31 Consult Physician Routine Consulting Provider: Micha Castañeda Consult Reason/Comments: evaluate for remdesivir Do you want consulting provider notified?: Yes, Notify in am Consult Physician Routine Consulting Provider: Shawn Donato Consult Reason/Comments: suprapubic cath leak Do you want consulting provider notified?: Yes, Notify in am 07/02/20 08:05 Consult Physician Routine Consulting Provider: Asad Ellis Consult Reason/Comments: bacteremia Do you want consulting provider notified?: Yes Primary care physician: [facility] Course: The patient is was a 75 -year-old female with a PMH of multiple sclerosis with contractures, type II DM, and history of CVA who had presented to the hospital from [place] due to suspicion of UTI and sepsis along with worsening mental status and poor oral intake. The patient was noted to have colored pneumonitis and was admitted for further management. Patient was found to have coag- negative staph bacteremia and infectious disease was consulted. The patient's p neumonitis gradually worsened and her oxygen requirements increased gradually to 15 L nasal cannula with episodes of hypoxia. On 07/06/20 at approximately 2313 the patient was noted to be in asystole on the school lunch monitor. The patient was found unresponsive and CODE BLUE was immediately activated. CPR was administered though the patient continued to be in asystole and subsequently at 2324. The patient's family was notified. Discharge diagnosis: COVID pneumonitis; bactaremia, UTI; Multiple sclerosis; Type 2 DM A total of 30 minutes of time were spent preparing this complex discharge summary. Plan - Discharge Summary Discharge Rx Participant: No New Discharge Prescriptions: No Action SILVER sulfADIAZINE Cream [Silvadene 1% Cream] 1 applic TOPICAL BID Pravastatin Sodium [Pravachol] 80 mg PO HS Oxybutynin Chloride [Ditropan XL] 10 mg PO DAILY Multivitamins, Thera [Multivitamin (formulary)] 1 tab PO DAILY Lisinopril [Zestril] 10 mg PO DAILY polyethylene glycoL 3350 [Miralax] 17 gm PO SUTUTH@1900 Naproxen [Naprosyn] 500 mg PO DAILY Metoprolol Succinate [Toprol XL] 25 mg PO HS bisacodyL [Dulcolax] 10 mg RECTAL MOWEFR@0700 FLUoxetine HCL 20 mg PO BID Cholecalciferol [Vitamin D3 (25 Mcg = 1000 Iu)] 2,000 unit PO DAILY L.acidoph,Paracasei, B.lactis [Probiotic] 1 cap PO DAILY Docusate [Colace] 100 mg PO HS Baclofen [Lioresal] 20 mg PO Q6H Neomycin And Polymyxin B Sulfates 40mg-[id number] Solution 50 ml IRRIGATION DAILY Discharge Medication List Baclofen [Lioresal] 20 mg PO Q6H 06/30/20 [History] Cholecalciferol [Vitamin D3 (25 Mcg = 1000 Iu)] 2,000 unit PO DAILY 06/30/20 [History] Docusate [Colace] 100 mg PO HS 06/30/20 [History] FLUoxetine HCL 20 mg PO BID 06/30/20 [History] L.acidoph,Paracasei, B.lactis [Probiotic] 1 cap PO DAILY 06/30/20 [History] Lisinopril [Zestril] 10 mg PO DAILY 06/30/20 [History] Metoprolol Succinate [Toprol XL] 25 mg PO HS 06/30/20 [History] Multivitamins, Thera [Multivitamin (formulary)] 1 tab PO DAILY 06/30/20 [History] Naproxen [Naprosyn] 500 mg PO DAILY 06/30/20 [History] Neomycin And Polymyxin B Sulfates [id number] Solution 50 ml IRRIGATION DAILY 06/30/20 [History] Oxybutynin Chloride [Ditropan XL] 10 mg PO DAILY 06/30/20 [History] Pravastatin Sodium [Pravachol] 80 mg PO HS 06/30/20 [History] SILVER sulfADIAZINE Cream [Silvadene 1% Cream] 1 applic TOPICAL BID 06/30/20 [History] bisacodyL [Dulcolax] 10 mg RECTAL MOWEFR@0700 06/30/20 [History] polyethylene glycoL 3350 [Miralax] 17 gm PO SUTUTH@1900 06/30/20 [History] Follow up Appointment(s)/Referral(s): Bala Campoverde MD [REFERRING] - 1-2 days [facility] [NON-STAFF] - Discharge Disposition: - Preliminary Cause of Preliminary Cause of : COVID 19
--- NOTE | 2020-07-11 10:12 | CDI ---
Documentation Clarification Form Date: 07/11/2020 10:00:55 AM From: Alejandra Gonzalez RN, CCDS Admit Date: 06/30/2020 05:31:00 PM Patient Name: Yanet Perkins Visit Number: [id number] Discharge Date: 07/07/2020 05:47:00 AM ATTENTION: The Clinical Documentation Specialists (CDI) and [facility] Coding Staff appreciate your assistance in clarifying documentation. Please respond to the clarification below the line at the bottom and electronically sign. The CDI & [facility] Coding staff will review the response and follow-up if needed. Please note: Queries are made part of the Legal Health Record. If you have any questions, please contact the author of this message via ITS. Dr. Duffy A pressure ulcer was documented in the Nursing assessments and requires MD documentation. History/Risk Factors: MS with contractures and is bedbound, UTI with suprapubic catheter, Toxic encephalopathy, Covid 19 with acute hypoxic respiratory failure Clinical Indicators: 07/01 Dietary Consult: Stage 2 pressure injury on buttocks 07/01-07/06 Nursing Assessments: pressure injury POA stage 2 to buttock 07/01 [facility] Location: buttocks Wound description: stage 2 per nursing assessment with no other descriptors documented. Treatment: Glucerna BID Turn Q 2 hrs. Medicated gel and ointment Elements for accurate and compliant documentation of an ulcer: *The location/laterality of the ulcer *Etiology (decubitus/pressure, diabetic, PVD) *Stage I-IV, Unstageable, Suspected Deep Tissue Injury (To the deepest stage) *If the ulcer was present at admission (POA) or occurred after admission In your professional opinion, can you please clarify the diagnosis, location, laterality and whether present on admission (POA): Stage 1 Pressure/Decubitus Ulcer (intact skin, non-blanching redness of local area) Stage 2 Pressure/Decubitus Ulcer (Partial thickness, loss of dermis, pink wound bed) Stage 3 Pressure/Decubitus Ulcer (Full thickness tissue loss) Stage 4 Pressure/Decubitus Ulcer (Full thickness tissue loss with exposed bone, tendon, or muscle. May have slough or eschar present) Unstageable Other condition, please specify Unable to determine Please indicate etiology of pressure ulcer (if known). (Last Revision: April 2017) MTDD
== END 2020-07-07 05:47 | disposition expired | DRG 698 ==
LOC: SUPCPDRO 16:13 → EDBD 16:13 → EC 16:13 → 6NMEDSUR 17:31 → 4SSUR 21:18
PROVIDERS: ADMIT Internal Medicine; ATTEND Internal Medicine
DX: T83.518A Infection and inflammatory reaction due to other urinary catheter, initial encounter (principal); U07.1 COVID-19; G92 Toxic encephalopathy; J96.01 Acute respiratory failure with hypoxia; J12.89 Other viral pneumonia; A41.9 Sepsis, unspecified organism; J69.0 Pneumonitis due to inhalation of food and vomit; N39.0 Urinary tract infection, site not specified; I46.9 Cardiac arrest, cause unspecified; E11.9 Type 2 diabetes mellitus without complications; Y84.6 Urinary catheterization as the cause of abnormal reaction of the patient, or of later complication, without mention of misadventure at the time of the procedure; L89.302 Pressure ulcer of unspecified buttock, stage 2; I95.9 Hypotension, unspecified; G35 Multiple sclerosis; N31.9 Neuromuscular dysfunction of bladder, unspecified; R53.81 Other malaise; Z88.2 Allergy status to sulfonamides; Z86.73 Personal history of transient ischemic attack (TIA), and cerebral infarction without residual deficits; Z79.899 Other long term (current) drug therapy; Z74.01 Bed confinement status
CPT/HCPCS: 36415; 71045; 74018; 80048; 80053; 80202; 81001; 82565; 82728; 83605; 83615; 84145; 85025; 85027; 85379; 86140; 87040; 87086; 87635; 93005; 94760; 96365; 96366; 96375; 99285